=== PATIENT | male | born 1975 | race Caucasian/White ===

== ENCOUNTER → 2020-02-15 12:08 | Outpatient (BNVA) | payer MEDICAID, SELFPAY | PROVIDERS: Visit Provider Family Medicine Adult Medicine | DX: R06.02 Shortness of breath (principal); J44.1 Chronic obstructive pulmonary disease with (acute) exacerbation; F17.210 Nicotine dependence, cigarettes, uncomplicated; Z00.00 Encounter for general adult medical examination without abnormal findings | CPT/HCPCS: 80053; 80061; 83036; 84443; 85025 ==

== ENCOUNTER → 2021-02-27 11:54 | Outpatient (BNVA) | payer MEDICAID, SELFPAY | PROVIDERS: PCP Family Medicine Adult Medicine; Visit Provider Family Medicine Adult Medicine | DX: J44.9 Chronic obstructive pulmonary disease, unspecified (principal); Z13.6 Encounter for screening for cardiovascular disorders | CPT/HCPCS: 80053; 80061; 83036; 84443; 85025; G0103 ==

== ENCOUNTER 2021-09-24 01:08 | Emergency (ER) | payer MEDICAID, SELFPAY ==
[2021-09-24] VITALS (9 sets, daily range): BP systolic 124–155; BP diastolic 84–98; PULSE 102–140; RESP 18–34; TEMP 36.9; O2SAT 80–96; BMI 24.3
--- NOTE | 2021-09-24 01:12 | XRR_ITS ---
PROCEDURE INFORMATION: Exam: XR Chest Exam date and time: 09/24/2021 1:28 AM Age: 46 years old Clinical indication: Shortness of breath; Patient HX: C/O SOB. History of copd. TECHNIQUE: Imaging protocol: Radiologic exam of the chest. Views: 1 view. COMPARISON: CR Chest 1 [place] [id number] 10/16/2018 12:48 AM FINDINGS: Lungs: The lungs are somewhat hyperinflated with increased interstitial markings, likely representing COPD. No evidence of focal consolidation to suggest pneumonia. Pleural spaces: Unremarkable. No pleural effusion. No pneumothorax. Heart/Mediastinum: Stable cardiomediastinal silhouette. Bones/joints: Unremarkable. XR/XR chest 1V portable [id number] IMPRESSION: No evidence of focal consolidation. COPD changes.
--- NOTE | 2021-09-24 01:12 | ECG_ITS ---
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 Measurements Intervals [place] Rate: 134 P: 80 OK: 123 QRS: 97 QRSD: 86 T: 78 QT: 270 QTc: 403 Interpretive Statements SINUS TACHYCARDIA BORDERLINE RIGHT AXIS DEVIATION [QRS AXIS > 90] ABNORMAL RHYTHM ECG Compared to ECG 10/09/2018 14:36:26 Sinus rhythm no longer present Electronically Signed On 09-24-2021 16:29:17 CDT by Lukas Rodrigez M.D. [id number] f
--- NOTE | 2021-09-24 01:13 | W.ED.SOB ---
HPI - SOB/Dyspnea General: Chief Complaint: Shortness of Breath/Dyspnea Stated Complaint: SOB Time Seen by Provider: 09/24/21 01:10 Source: patient Mode of arrival: ambulatory Limitations: no limitations History of Present Illness: HPI Narrative: 46-year-old male has a history of COPD states he had increasing shortness of breath of the last 2 days. Patient is tachypneic here and able to speak in 2-3 word sentences patient's pulse ox on room air here is 80% had to place him on 4 L. He denies any cough or fever denies any worsening improving factors he is tried breathing treatments at home with minimal improvement. He denies any chest pain. Associated symptoms: Deny abdominal pain, chest pain, fever(s), nausea or vomiting Review of Systems Const: Denies: fever(s), chills, body aches or change in appetite Eyes: Denies: blurry vision or eye discomfort ENMT: Denies: throat pain or dental pain Card: Denies: chest pain Resp: Reports: dyspnea GI: Denies: abdominal pain, nausea, vomiting or diarrhea : Denies: dysuria Musc: Denies: neck pain or back pain Skin/Breast: Denies: rash Neuro: Denies: headache(s) Psych: Denies: depression Rik/Lymph: Denies: easy bruising All/Imm: Denies: urticaria PFSH ED PFSH: Medical History Anxiety disorder due to general medical condition with panic attack Cigarette smoker two packs a day or less COPD (chronic obstructive pulmonary disease) case management patient COPD exacerbation COPD with hypoxia Encounter for smoking cessation counseling Lipoma of chest wall 03/06/2021 3.5 x 6 cm right lateral chest wall probable lipoma Oxygen dependent Shortness of breath at rest Family History Other COPD (chronic obstructive pulmonary disease) Cancer Social History Smoking and tobacco status: heavy tobacco smoker (o.5 pack a day) cigarettes Packs smoked per day: 1 Second hand smoke exposure: Yes Alcohol intake: current Alcohol intake frequency: holidays/special occasions only Marital status: Legally Current occupational status: disabled Physical Exam Const: COMMON NORMALS: patient oriented x3 GENERAL APPEARANCE: in distress and ill appearing HENMT: COMMON NORMALS: normocephalic and atraumatic HEAD & SCALP: normocephalic and atraumatic Eye: COMMON NORMALS: Equal, round and reactive pupils present and EOMs intact bilaterally PUPIL: Yes Equal, round and reactive pupils present Neck/C-Spine: COMMON NORMALS: full ROM and supple Chest: COMMONS NORMALS: normal inspection of the chest and normal palpation of entire chest wall Resp: EFFORT & INSPECTION: Yes tachypneic AUSCULTATION: wheezes and diminished lung sounds Cardio: COMMON NORMALS: regular rhythm and No murmurs present (Cardio) RATE: tachycardic RHYTHM: regular rhythm GI: COMMON NORMALS: Normal to inspection, nondistended, normoactive bowel sounds present, Soft to palpation, non-tender and no masses PALPATION: Yes Soft to palpation Extremity: COMMON NORMALS: normal to inspection and full ROM Neuro: COMMON NORMALS: patient oriented x3, moves all extremities and no focal motor deficits Psych: COMMON NORMALS: mental status grossly normal, Normal thought process present and cooperative THOUGHT PROCESS: Normal thought process present Skin: COMMON NORMALS: no rashes or lesions noted and no wounds GENERAL SKIN EXAM: no rashes or lesions noted Course Vital Signs: Vital signs: Vital Signs Temperature 98.4 F 09/24/21 01:16 Pulse Rate 102 H 09/24/21 05:22 Respiratory Rate 22 H 09/24/21 05:22 Blood Pressure 124/84 09/24/21 05:22 Pulse Oximetry 95 09/24/21 05:22 Oxygen Delivery Ne thod 09/24/21 05:21 Oxygen Flow Rate 4 09/24/21 05:21 MDM - SOB/Dyspnea Medical Decision Making Patient presents here with shortness of breath likely from his COPD he is supposed to be on 3 to 4 L of oxygen at home but has not had it delivered. Patient here after breathing treatment feels much improved and he is satting 95% on 4 L. I did offer him admission but he states he would rather go home we will set him up with home oxygen he is to follow-up with PCP and return if worsening will prescribe him steroids. Lab Data : 09/24/21 01:21 09/24/21 01:21 Labs/Radiology: Radiology Impressions Chest X-Ray 09/24/21 01:12 IMPRESSION: No evidence of focal consolidation. COPD changes. Laboratory Results WBC 15.4 10^3/uL (4.0-10.0) H 09/24/21 01:21 RBC 5.57 10^6/uL (4.1-5.3) H 09/24/21 01:21 Hgb 15.9 g/dL (11.7-16.6) 09/24/21 01:21 Hct 49.9 % (42.0-52.0) 09/24/21 01:21 MCV 89.6 fl (80-94) 09/24/21 01:21 MCH 28.5 pg (28.0-34.0) 09/24/21 01:21 MCHC 31.9 g/dL (30.0-36.0) 09/24/21 01:21 RDW 14.1 % (12.1-15.1) 09/24/21 01:21 Plt Count 298 10^3/cmm (130-400) 09/24/21 01:21 MPV 9.5 fL (7.4-10.4) 09/24/21 01:21 Neut % (Auto) 77.7 % 09/24/21 01:21 Lymph % (Auto) 11.0 % 09/24/21 01:21 [place] % (Auto) 8.9 % 09/24/21 01:21 Eos % (Auto) 1.5 % 09/24/21 01:21 Baso % (Auto) 0.5 % 09/24/21 01:21 Neut # (Auto) 11.94 10^3/uL (1.8-7.7) H 09/24/21 01:21 Lymph # (Auto) 1.7 10^3/uL (0.8-4.8) 09/24/21 01:21 [place] # (Auto) 1.4 10^3/uL (0.2-0.9) H 09/24/21 01:21 Eos # (Auto) 0.2 10^3/uL (0.0-0.8) 09/24/21 01:21 Baso # (Auto) 0.1 10^3/uL (0.0-0.1) 09/24/21 01:21 Nucleated RBC % (auto) 0 % 09/24/21 01:21 Nucleated RBCs # 0.0 /100WBC 09/24/21 01:21 Specimen Type Arterial 09/24/21 01:24 Sample Site Radial, right 09/24/21 01:24 ABG pH 7.38 (7.35-7.45) 09/24/21 01:24 ABG pCO2 54.1 mmHg (35-45) H 09/24/21 01:24 ABG pO2 75.6 mmHg (80.0-100.0) L 09/24/21 01:24 ABG HCO3 31.6 mmol/L (22-26) H 09/24/21 01:24 ABG Base Excess 4.8 mmol/L (-2.0-2.0) H 09/24/21 01:24 Gurpreet Test Pos 09/24/21 01:24 Hematocrit 46.8 % (42-52) 09/24/21 01:24 Hgb O2 Saturation 92.4 % (95-100) L 09/24/21 01:24 Carboxyhemoglobin 2.3 %THgb (0.4-20.1) 09/24/21 01:24 Methemoglobin 0.7 % (0.4-1.5) 09/24/21 01:24 Total Hemoglobin 15.3 g/dL (14-18) 09/24/21 01:24 O2 Delivery Device Nc 09/24/21 01:24 O2 Liters/Min 4.0 % 09/24/21 01:24 Nuclear Auxiliary Operator ID Walci 09/24/21 01:24 Sodium 137 mmol/L (136-145) 09/24/21 01:21 Potassium 4.6 mmol/L (3.5-5.1) 09/24/21 01:21 Chloride 100 mmol/L (98-107) 09/24/21 01:21 Carbon Dioxide 26 mmol/L (22-29) 09/24/21 01:21 Anion Gap 15.6 (5-19) 09/24/21 01:21 BUN 17 mg/dL (6-20) 09/24/21 01:21 Creatinine 0.8 mg/dL (0.7-1.2) 09/24/21 01:21 GFR Calculation 103.2 mL/min (90-130) 09/24/21 01:21 Glucose 87 mg/dL (65-115) 09/24/21 01:21 Calculated Osmolality 285 mOsm/kg (285-295) 09/24/21 01:21 Calcium 9.9 mg/dL (8.5-10.5) 09/24/21 01:21 Total Bilirubin 0.4 mg/dL (0.15-1.2) 09/24/21 01:21 AST 46 U/L (0-40) H 09/24/21 01:21 ALT 65 U/L (0-41) H 09/24/21 01:21 Alkaline Phosphatase 86 IU/L (40-130) 09/24/21 01:21 NT-Pro-B Natriuret Pep 568 pg/mL (0-125) H 09/24/21 01:21 Total Protein 7.7 g/dL (6.6-8.7) 09/24/21 01:21 Albumin 3.9 g/dL (3.5-5.2) 09/24/21 01:21 Globulin 3.8 g/dL (1.3-4.6) 09/24/21 01:21 SARS-CoV-2 Ag (Rapid) Negative (Negative) 09/24/21 01:23 EKG Data EKG 1: I personally reviewed and interpreted this EKG as follows: EKG Interpretation Date: 09/24/21 EKG interpretation time: 01:16 Interpretation: sinus tach hr [address] or t wave abnormalities qrs 86 qtc 349 Discharge Plan Discharge Patient Disposition: Home Clinical Impression: Acute exacerbation of chronic obstructive airways disease Condition: Stable Prescriptions: New prednisone 50 mg tablet 50 mg PO DAILY Qty: 5 0RF No Action budesonide-formoterol [Symbicort] 160-4.5 mcg/actuation HFA aerosol inhaler 2 puff inhalation BID Qty: 10.2 5RF methadone IM montelukast [Singulair] 10 mg tablet 10 mg PO DAILY Qty: 30 5RF hydroxyzine pamoate 50 mg capsule 50 mg PO Q8H PRN (Reason: Anxiety or panic attacks) Qty: 90 5RF sertraline 50 mg tablet 50 mg PO DAILY Qty: 30 1RF Spiriva with HandiHaler 18 mcg capsule, w/inhalation device 1 cap inhalation DAILY Qty: 30 5RF Rx Instructions: puncture 1 cap using device; one dose = 2 inhalations 340B meds (DME) Oxygen and supplies See Rx Instructions .Route .MEDSUPPLY Qty: 1 0RF Rx Instructions: As directed, 2 liters, continuous. Combivent Respimat 20-100 mcg/actuation mist See Rx Instructions .ROUTE .COMPLEX Qty: 4 3RF Dose Instruction: INHALE 2 PUFFS BY MOUTH EVERY 8 HOURS NEEDED FOR SHORTNESS OF BREATH OR WHEEZING Rx Instructions: INHALE 2 PUFFS BY MOUTH EVERY 8 HOURS NEEDED FOR SHORTNESS OF BREATH OR WHEEZING Discharge Orders: Discharge ED (Routine); Ordered 09/24/21 Ordered By: Randy Saldana Other Ambulatory Orders: DME: Oxygen (Order) Location: None Selected Ordered By: Randy Saldana Referrals: Bruno Lucas MD [Primary Care Provider] - 1-3 days Discharge Diet: Advance as tolerated Discharge Activity: Resume usual activity Patient Instructions: COPD (Chronic Obstructive Pulmonary Disease) (ED) Coding Level of Care Code ED Grading Clerk for Chg Fwd Exam Comprehensive
[2021-09-24 01:27] LABS: Basophils # 0.1 10^3/uL (0.0-0.1); Basophils % 0.5 %; Eosinophils # 0.2 10^3/uL (0.0-0.8); Eosinophils % 1.5 %; Hematocrit 49.9 % (42.0-52.0); Hemoglobin 15.9 g/dL (11.7-16.6); Lymphocytes # 1.7 10^3/uL (0.8-4.8); Mean Corpuscular HGB Conc 31.9 g/dL (30.0-36.0); Mean Corpuscular Hemoglobin 28.5 pg (28.0-34.0); Mean Corpuscular Volume 89.6 fl (80-94); Mean Platelet Volume 9.5 fL (7.4-10.4); Monocytes # 1.4 10^3/uL (0.2-0.9); Monocytes % 8.9 %; Neutrophils # 11.94 10^3/uL (1.8-7.7); Neutrophils % 77.7 %; Nucleated Red Blood Cells % 0 %; Platelet Count 298 10^3/cmm (130-400); Red Blood Count 5.57 10^6/uL (4.1-5.3); Red Cell Distribution Width 14.1 % (12.1-15.1); White Blood Count 15.4 10^3/uL (4.0-10.0)
[2021-09-24 01:35] LABS: ABG PCO2 54.1 mmHg (35-45); ABG PH Result 7.38 (7.35-7.45); Arterial Blood Gas Hematocrit 46.8 % (42-52); Base Excess ABG 4.8 mmol/L (-2.0-2.0); Blood Gas Allen Test Pos; Blood Gas Operator Identificat WALCI; Blood Gas Sample Site Radial, right; Blood Gas Sample Type Arterial; Carboxyhemoglobin 2.3 %THgb (0.4-20.1); HCO3 ABG 31.6 mmol/L (22-26); HGB O2 Sat 92.4 % (95-100); Methemoglobin 0.7 % (0.4-1.5); Oxygen Device NC; PO2 ABG 75.6 mmHg (80.0-100.0); Total Hemoglobin 15.3 g/dL (14-18)
[2021-09-24] MEDS: ipratropium-albuterol 3 mL Neb INHALATION (01:37)
[2021-09-24] MEDS: levalbuterol 1.25 mg/3 mL Neb INHALATION ×2 (01:37→02:49)
[2021-09-24 01:56] LABS: SARS Covid-2 Antigen Negative (Negative)
[2021-09-24 01:59] LABS: Alanine Aminotransferase 65 U/L (0-41); Albumin Level 3.9 g/dL (3.5-5.2); Alkaline Phosphatase 86 IU/L (40-130); Anion Gap 15.6 (5-19); Aspartate Amino Transferase 46 U/L (0-40); Blood Urea Nitrogen 17 mg/dL (6-20); Calcium 9.9 mg/dL (8.5-10.5); Carbon Dioxide 26 mmol/L (22-29); Chloride 100 mmol/L (98-107); Globulin 3.8 g/dL (1.3-4.6); Glomerular Filtration Rate 103.2 mL/min (90-130); Glucose 87 mg/dL (65-115); Osmolality Calculated 285 mOsm/kg (285-295); Potassium 4.6 mmol/L (3.5-5.1); Sodium 137 mmol/L (136-145); Total Bilirubin 0.4 mg/dL (0.15-1.2); Total Protein 7.7 g/dL (6.6-8.7)
[2021-09-24 02:06] LABS: NT Pro B Type Natriuretic Pept 568 pg/mL (0-125)
== END 2021-09-24 05:23 | disposition home or self-care (01) ==
PROVIDERS: Emergency Provider Emergency Medicine; PCP Family Medicine Adult Medicine
DX: J44.1 Chronic obstructive pulmonary disease with (acute) exacerbation (principal); Z20.822 Contact with and (suspected) exposure to COVID-19; Z99.81 Dependence on supplemental oxygen; F17.210 Nicotine dependence, cigarettes, uncomplicated
CPT/HCPCS: 36600; 71045; 80053; 82805; 83880; 85025; 87426; 93005; 94640; 96374; 99285; J2930; J7614

== ENCOUNTER 2022-02-26 12:16 | Emergency (ER) | payer MEDICAID, SELFPAY ==
[2022-02-26 12:54] VITALS: BP 136/81; PULSE 136; RESP 27; TEMP 37.8
--- NOTE | 2022-02-26 13:21 | XR_ITS ---
WS: [id number] Portable PA upright chest, 02/26/2022 Clinical Data: SOB Comparison: Portable chest, 09/24/2021 Findings: No nodules, masses or effusions are seen. The heart is normal. The diaphragms are flattened . No pneumonia or pneumothorax is seen. The medial aspect of the left upper lobe has herniated acros s the midline. The pulmonary vascularity is normal. XR/XR chest 1V portable [id number] Impression: Hyperinflation.
[2022-02-26 13:44] VITALS: BP 136/86; PULSE 128; RESP 28; O2SAT 92
[2022-02-26 14:17] LABS: ABG PCO2 53.2 mmHg (35-45); ABG PH Result 7.38 (7.35-7.45); Alveolar-Arterial Oxygen Gradi 0.3 mmHg (5-10); Arterial Blood Gas Hematocrit 49.6 % (42-52); Base Excess ABG 4.3 mmol/L (-2.0-2.0); Blood Gas Allen Test Pos; Blood Gas Operator Identificat WALCI; Blood Gas Sample Site Radial, right; Blood Gas Sample Type Arterial; Carboxyhemoglobin 1.8 %THgb (0.4-20.1); HCO3 ABG 31.2 mmol/L (22-26); HGB O2 Sat 94.5 % (95-100); Ionized Calcium Level - ABG 1.2 mmol/L (1.1-1.4); Methemoglobin 0.1 % (0.4-1.5); Oxygen Device NC; Oxygen Saturation ABG 96.4; PO2 ABG 81.6 mmHg (80.0-100.0); Potassium Level - ABG 4.3 mmol/L (3.5-5.0); Total Hemoglobin 16.2 g/dL (14-18)
--- NOTE | 2022-02-26 14:56 | PC.NURSE ---
WHILE AT BEDSIDE PT REQUESTING MEDICATION FOR HIS HEAD INFORMED HIM I WOULD NOTIFY DR. ORTA.DR. ORTA IS NOT IN HIS OFFICE LEFT NOTE.
[2022-02-26 15:18] LABS: Basophils # 0.1 10^3/uL (0.0-0.1); Basophils % 0.3 %; Eosinophils % 0.1 %; Hemoglobin 15.5 g/dL (11.7-16.6); Lymphocytes # 0.8 10^3/uL (0.8-4.8); Lymphocytes % 5.1 %; Mean Corpuscular Hemoglobin 28.1 pg (28.0-34.0); Mean Corpuscular Volume 85.3 fl (80-94); Mean Platelet Volume 9.8 fL (7.4-10.4); Monocytes # 1.3 10^3/uL (0.2-0.9); Monocytes % 8.3 %; Neutrophils # 13.67 10^3/uL (1.8-7.7); Neutrophils % 85.7 %; Nucleated Red Blood Cells % 0 %; Platelet Count 255 10^3/cmm (130-400); Red Blood Count 5.51 10^6/uL (4.1-5.3); Red Cell Distribution Width 14.1 % (12.1-15.1)
--- NOTE | 2022-02-26 15:35 | W.ED.SOB ---
HPI - SOB/Dyspnea General: Chief Complaint: Shortness of Breath/Dyspnea Stated Complaint: SOB Time Seen by Provider: 02/26/22 14:17 Source: patient Mode of arrival: ambulatory History of Present Illness: HPI Narrative: 46-year-old male presents emergency room with complaints of shortness of breath wheezing and productive cough started last night. He has a history of COPD and is chronically on 2 L by nasal cannula he tested negative for COVID at home yesterday on a rapid test. Patient has had a fever at home severe headaches muscle aches. No vomiting or diarrhea. MD elicited complaint: shortness of breath and cough Pertinent past history: COPD Onset (ago): day(s) Timing: constant Severity: mild Exacerbating factors: coughing Relieving factors: oxygen, rest and bronchodilators Known history of: COPD Associated symptoms: Reports chest congestion, cough, fever(s) and nausea; Deny abdominal pain, chest pain, diaphoresis, dizziness, extremity pain, hemoptysis, lightheadedness, myalgias, orthopnea, palpitations, paresthesias, polydipsia, polyuria, rash, sense of impending doom, syncope or vomiting Treatment prior to arrival: oxygen and bronchodilator Review of Systems Const: Reports: fever(s), chills, fatigue and malaise; Denies: diaphoresis ENMT: Denies: throat pain, ear or mastoid pain, nasal discharge or nasal congestion Card: Denies: chest pain, palpitations, irregular heart rhythm, edema, lightheadedness, syncope or orthopnea Resp: Reports: dyspnea, non-productive cough, wheezing and chest congestion; Denies: hemoptysis GI: Reports: nausea; Denies: abdominal pain or vomiting : Denies: flank pain, dysuria, urinary frequency or urinary urgency Musc: Reports: joint pain; Denies: extremity pain Skin/Breast: Denies: rash or pruritus Neuro: Reports: headache(s); Denies: dizziness Endo: Denies: polyuria or polydipsia PFS ED PFSH: Medical History (Updated 02/26/22 @ 17:36 by Migue Menjivar DO) Anxiety disorder due to general medical condition with panic attack Cigarette smoker motivated to quit Cigarette smoker two packs a day or less COPD (chronic obstructive pulmonary disease) case management patient COPD exacerbation COPD with hypoxia Decompensated COPD with exacerbation (chronic obstructive pulmonary disease) Encounter for smoking cessation counseling Lipoma of chest wall 03/06/2021 3.5 x 6 cm right lateral chest wall probable lipoma Oxygen dependent Respiratory distress, acute Shortness of breath at rest Family History Other COPD (chronic obstructive pulmonary disease) Cancer Social History (Updated 01/02/22 @ 13:38 by Nimco [place] LPN) Smoking and tobacco status: current every day smoker cigarettes Packs smoked per day: 1 Second hand smoke exposure: Yes Alcohol intake: current Alcohol intake frequency: holidays/special occasions only Alcohol type: hard liquor Lives independently: Yes Marital status: Legally Current occupational status: disabled Current gender identity: Male Physical Exam Const: COMMON NORMALS: no acute distress GENERAL APPEARANCE: cooperative and comfortable ORIENTATION/CONSCIOUSNESS: Yes awake, Yes oriented to person, Yes oriented to place and Yes oriented to time HENMT: COMMON NORMALS: normocephalic, atraumatic, hearing grossly normal bilaterally, external ears normal, EAC's normal, TM's normal bilaterally, Normal nasal mucous membranes and turbinates present, moist oral mucous membranes and oropharynx normal HEAD & SCALP: normocephalic and atraumatic NOSE: Normal nasal mucous membranes and turbinates present EXTERNAL EAR: Yes external ears normal EXTERNAL AUDITORY CANAL: EAC's normal TYMPANIC MEMBRANE: TM's normal bilaterally Eye: COMMON NORMALS: Equal, round and reactive pupils present, EOMs intact bilaterally, conjunctivae normal and no scleral icterus CONJUNCTIVA: Yes conjunctivae normal PUPIL: Yes Equal, round and reactive pupils present Neck/C-Spine: COMMON NORMALS: full ROM, no lymphadenopathy and supple Resp: AUSCULTATION: rhonchi and wheezes Cardio: COMMON NORMALS: regular rate, regular rhythm and No murmurs present (Cardio) RATE: regular rate RHYTHM: regular rhythm GI: COMMON NORMALS: Soft to palpation and No hepatosplenomegaly present AUSCULTATION: Yes normoactive bowel sounds PALPATION: Yes Soft to palpation, No Tenderness to palpation present (GI), No Guarding due to palpation present (GI) and Yes No hepatosplenomegaly present Extremity: COMMON NORMALS: normal to inspection, capillary refill normal, no clubbing, cyanosis or edema, no calf tenderness and no pedal edema Neuro: SENSORIUM/ORIENTATION: Yes oriented to person, Yes oriented to place and Yes oriented to time Skin: COMMON NORMALS: no rashes or lesions noted GENERAL SKIN EXAM: no rashes or lesions noted Course Vital Signs: Vital signs: Vital Signs Temperature 98.4 F 02/26/22 18:25 Pulse Rate 119 H 02/26/22 18:25 Respiratory Rate 18 02/26/22 18:25 Blood Pressure 135/74 02/26/22 18:25 Pulse Oximetry 96 02/26/22 18:25 Oxygen Delivery Me thod 02/26/22 16:16 Oxygen Flow Rate 2 02/26/22 16:16 Fraction of Inspir ed Oxygen 90 02/26/22 12:54 MDM - SOB/Dyspnea Medical Decision Making Labs imaging reviewed. Nothing acute on his chest x-ray test positive for flu. He is feeling better after treatment we will put him on steroid taper also on Tamiflu because of his severe COPD encouraged him to use the albuterol every 2-4 hours while awake return if is worsening problems Medical Records I reviewed the patient's medical records. Lab Data I reviewed the patient's lab results. 02/26/22 15:10 02/26/22 15:10 Labs/Radiology: Radiology Impressions Chest X-Ray 02/26/22 13:21 Impression: Hyperinflation. Laboratory Results WBC 16.0 10^3/uL (4.0-10.0) H 02/26/22 15:10 RBC 5.51 10^6/uL (4.1-5.3) H 02/26/22 15:10 Hgb 15.5 g/dL (11.7-16.6) 02/26/22 15:10 Hct 47.0 % (42.0-52.0) 02/26/22 15:10 MCV 85.3 fl (80-94) 02/26/22 15:10 MCH 28.1 pg (28.0-34.0) 02/26/22 15:10 MCHC 33.0 g/dL (30.0-36.0) 02/26/22 15:10 RDW 14.1 % (12.1-15.1) 02/26/22 15:10 Plt Count 255 10^3/cmm (130-400) 02/26/22 15:10 MPV 9.8 fL (7.4-10.4) 02/26/22 15:10 Neut % (Auto) 85.7 % 02/26/22 15:10 Lymph % (Auto) 5.1 % 02/26/22 15:10 [place] % (Auto) 8.3 % 02/26/22 15:10 Eos % (Auto) 0.1 % 02/26/22 15:10 Baso % (Auto) 0.3 % 02/26/22 15:10 Neut # (Auto) 13.67 10^3/uL (1.8-7.7) H 02/26/22 15:10 Lymph # (Auto) 0.8 10^3/uL (0.8-4.8) 02/26/22 15:10 [place] # (Auto) 1.3 10^3/uL (0.2-0.9) H 02/26/22 15:10 Eos # (Auto) 0.0 10^3/uL (0.0-0.8) 02/26/22 15:10 Baso # (Auto) 0.1 10^3/uL (0.0-0.1) 02/26/22 15:10 Nucleated RBC % (auto) 0 % 02/26/22 15:10 Nucleated RBCs # 0.0 /100WBC 02/26/22 15:10 Specimen Type Arterial 02/26/22 14:06 Sample Site Radial, right 02/26/22 14:06 ABG pH 7.38 (7.35-7.45) 02/26/22 14:06 ABG pCO2 53.2 mmHg (35-45) H 02/26/22 14:06 ABG pO2 81.6 mmHg (80.0-100.0) 02/26/22 14:06 ABG HCO3 31.2 mmol/L (22-26) H 02/26/22 14:06 ABG O2 Saturation 96.4 02/26/22 14:06 ABG Base Excess 4.3 mmol/L (-2.0-2.0) H 02/26/22 14:06 Gurpreet Test Pos 02/26/22 14:06 A-a O2 Gradient 0.3 mmHg (5-10) L 02/26/22 14:06 Hematocrit 49.6 % (42-52) 02/26/22 14:06 Hgb O2 Saturation 94.5 % (95-100) L 02/26/22 14:06 Carboxyhemoglobin 1.8 %THgb (0.4-20.1) 02/26/22 14:06 Methemoglobin 0.1 % (0.4-1.5) L 02/26/22 14:06 Total Hemoglobin 16.2 g/dL (14-18) 02/26/22 14:06 Sodium 128.0 mmol/L (131-143) L 02/26/22 14:06 Potassium 4.3 mmol/L (3.5-5.0) 02/26/22 14:06 Glucose 86.0 mg/dL (70-115) 02/26/22 14:06 Ionized Calcium 1.2 mmol/L (1.1-1.4) 02/26/22 14:06 O2 Delivery Device Nc 02/26/22 14:06 O2 Liters/Min 3.0 % 02/26/22 14:06 Psychologist Counseling ID Walci 02/26/22 14:06 Sodium 126 mmol/L (136-145) L 02/26/22 15:10 Potassium 4.5 mmol/L (3.5-5.1) 02/26/22 15:10 Chloride 89 mmol/L (98-107) L 02/26/22 15:10 Carbon Dioxide 30 mmol/L (22-29) H 02/26/22 15:10 Anion Gap 11.5 (5-19) 02/26/22 15:10 BUN 14 mg/dL (6-20) 02/26/22 15:10 Creatinine 0.6 mg/dL (0.7-1.2) L 02/26/22 15:10 GFR Calculation 143.8 mL/min (90-130) H 02/26/22 15:10 Glucose 87 mg/dL (65-115) 02/26/22 15:10 Calculated Osmolality 262 mOsm/kg (285-295) L 02/26/22 15:10 Lactic Acid 0.5 mmol/L (0.5-2.2) 02/26/22 15:10 Calcium 9.8 mg/dL (8.5-10.5) 02/26/22 15:10 Total Bilirubin 0.6 mg/dL (0.15-1.2) 02/26/22 15:10 AST 47 U/L (0-40) H 02/26/22 15:10 ALT 57 U/L (0-41) H 02/26/22 15:10 Alkaline Phosphatase 75 U/L (40-130) 02/26/22 15:10 Total Protein 7.5 g/dL (6.6-8.7) 02/26/22 15:10 Albumin 4.2 g/dL (3.5-5.2) 02/26/22 15:10 Globulin 3.3 g/dL (1.3-4.6) 02/26/22 15:10 Influenza Type A Ag positive (Negative) H 02/26/22 16:36 Influenza Type B Ag negative (Negative) 02/26/22 16:36 Discharge Plan Discharge Patient Disposition: Home Clinical Impression: Acute exacerbation of chronic obstructive airways disease, Influenza A Condition: Stable Prescriptions: New Tamiflu 75 mg capsule 75 mg PO BID 5 Days Qty: 10 0RF prednisone 20 mg tablet 20 mg PO TID Qty: 15 0RF Rx Instructions: 1 p.o. 3 times daily x3 days, 1 p.o. twice daily x2 days, 1 p.o. daily x2 days albuterol sulfate 90 mcg/actuation HFA aerosol inhaler 2 inh INHALATION Q4H PRN (Reason: shortness of breath or wheezing) Qty: 18 0RF No Action bupropion HCl 150 mg tablet sustained-release 12 hr 150 mg PO QAM Qty: 30 3RF (DME) Oxygen and supplies See Rx Instructions .Route .MEDSUPPLY Qty: 1 11RF Rx Instructions: As directed, 2 liters, continuous. Spiriva with HandiHaler 18 mcg capsule, w/inhalation device 1 cap inhalation DAILY Qty: 30 5RF Rx Instructions: puncture 1 cap using device; one dose = 2 inhalations 340B meds (DME) nebulizer & suppies See Rx Instructions .Route .MEDSUPPLY Qty: 1 0RF Rx Instructions: As directed Home equipment hydroxyzine pamoate 50 mg capsule 50 mg PO Q8H PRN (Reason: Anxiety) sertraline 50 mg tablet 50 mg PO DAILY Singulair 10 mg tablet 10 mg PO DAILY Symbicort 160-4.5 mcg/actuation HFA aerosol inhaler 2 puff inhalation BID ipratropium-albuterol 20-100 mcg/actuation mist 2 puff inhalation Q8H PRN (Reason: Shortness Of Breath) Discharge Orders: Discharge ED (Routine); Ordered 02/26/22 Ordered By: Migue Menjivar Referrals: Bruno Lucas MD [Primary Care Provider] - Discharge Diet: Usual diet Discharge Activity: Resume usual activity Patient Instructions: Opioid Safety, Pain Management Activity Restrictions/Additional Instructions: You were seen today for shortness of breath. You tested positive for influenza A. Due to your COPD we are starting you on a course of prednisone also recommend you do Tamiflu. Use albuterol as needed. Coding Level of Care Code ED Title I Assistant for Eb Chawla
[2022-02-26 15:37] LABS: Lactic Sepsis W/Reflex 0.5 mmol/L (0.5-2.2)
[2022-02-26 15:44] LABS: Alanine Aminotransferase 57 U/L (0-41); Albumin Level 4.2 g/dL (3.5-5.2); Alkaline Phosphatase 75 U/L (40-130); Anion Gap 11.5 (5-19); Aspartate Amino Transferase 47 U/L (0-40); Blood Urea Nitrogen 14 mg/dL (6-20); Calcium 9.8 mg/dL (8.5-10.5); Carbon Dioxide 30 mmol/L (22-29); Chloride 89 mmol/L (98-107); Globulin 3.3 g/dL (1.3-4.6); Glomerular Filtration Rate 143.8 mL/min (90-130); Glucose 87 mg/dL (65-115); Osmolality Calculated 262 mOsm/kg (285-295); Potassium 4.5 mmol/L (3.5-5.1); Sodium 126 mmol/L (136-145); Total Bilirubin 0.6 mg/dL (0.15-1.2); Total Protein 7.5 g/dL (6.6-8.7)
[2022-02-26] MEDS: ipratropium-albuterol 3 mL Neb INHALATION (16:15)
[2022-02-26 16:16] VITALS: PULSE 120; RESP 20; O2SAT 99
[2022-02-26 16:19] VITALS: PULSE 121
[2022-02-26] MEDS: ketorolac 30 mg/mL INJ IVP (16:41)
[2022-02-26 17:15] LABS: Influenza A by IFA positive (Negative); Influenza B by IFA negative (Negative)
[2022-02-26 18:25] VITALS: BP 135/74; PULSE 119; RESP 18; TEMP 36.9; O2SAT 96
== END 2022-02-26 18:26 | disposition home or self-care (01) ==
PROVIDERS: Emergency Provider Family Medicine; PCP Family Medicine Adult Medicine
DX: J44.1 Chronic obstructive pulmonary disease with (acute) exacerbation (principal); J10.1 Influenza due to other identified influenza virus with other respiratory manifestations; Z99.81 Dependence on supplemental oxygen; F17.210 Nicotine dependence, cigarettes, uncomplicated
CPT/HCPCS: 36415; 36600; 71045; 80051; 80053; 82330; 82805; 83605; 85025; 87804; 94640; 96374; 96375; 99284; J1885; J2930

== ENCOUNTER 2022-05-27 20:30 | Emergency (ER) | payer MEDICAID, SELFPAY ==
[2022-05-27 20:37] VITALS: BP 157/94; PULSE 101; RESP 24; TEMP 36.3; O2SAT 92; BMI 23.6
--- NOTE | 2022-05-27 21:22 | CTR_ITS ---
PROCEDURE INFORMATION: Exam: CTA Head With Contrast, Arteriography Exam date and time: 05/27/2022 9:48 PM Age: 46 years old Clinical indication: Pain; Headache; Patient HX: HX of chest wall lipoma; Additional info: ROBLES TECHNIQUE: Imaging protocol: Computed tomographic angiography of the head with contrast. Exam focused on the arteries. 3D rendering (Not supervised by radiologist): MIP and/or 3D reconstructed images were created by the technologist. Radiation optimization: All CT scans at this facility use at least one of these dose optimization techniques: automated exposure control; mA and/or kV adjustment per patient size (includes targeted exams where dose is matched to clinical indication); or iterative reconstruction. Contrast material: OMNI 350; Contrast volume: 100 ml; Contrast route: INTRAVENOUS (IV); REPORTING DATA: Count of CT and Cardiac NM exams in prior 12 months: This patient has received [address] and 0 known cardiac nuclear medicine studies in the 12 months prior to the current study. COMPARISON: CT head wo con* [id number] 05/27/2022 9:44 PM RADIATION DOSE METRICS: Total DLP (mGy-cm): 487.51 FINDINGS: ANTERIOR CIRCULATION: Right internal carotid artery: Intracranial segment is patent with no significant stenosis. No aneurysm. Right middle cerebral artery: No occlusion or significant stenosis. No aneurysm. Right anterior cerebral artery: No occlusion or significant stenosis. No aneurysm. Left internal carotid artery: Intracranial segment is patent with no significant stenosis. No aneurysm. Left middle cerebral artery: No occlusion or significant stenosis. No aneurysm. Left anterior cerebral artery: No occlusion or significant stenosis. No aneurysm. POSTERIOR CIRCULATION: Right vertebral artery: No occlusion or significant stenosis. No aneurysm. Left vertebral artery: No occlusion or significant stenosis. No aneurysm. Basilar artery: No occlusion or significant stenosis. No aneurysm. Right posterior cerebral artery: No occlusion or significant stenosis. No aneurysm. Left posterior cerebral artery: No occlusion or significant stenosis. No aneurysm. Brain: No definite mass, mass effect, or midline shift. Cerebral ventricles: No ventriculomegaly. Bones/joints: Unremarkable. No acute fracture. Soft tissues: Unremarkable. PROCEDURE INFORMATION: Exam: CTA Neck With Contrast Exam date and time: 05/27/2022 9:48 PM Age: 46 years old Clinical indication: Pain; Headache; Patient HX: HX of chest wall lipoma; Additional info: ROBLES TECHNIQUE: Imaging protocol: Computed tomographic angiography of the neck with contrast. 3D rendering (Not supervised by radiologist): MIP and/or 3D reconstructed images were created by the technologist. Radiation optimization: All CT scans at this facility use at least one of these dose optimization techniques: automated exposure control; mA and/or kV adjustment per patient size (includes targeted exams where dose is matched to clinical indication); or iterative reconstruction. Contrast material: OMNI 350; Contrast volume: 100 ml; Contrast route: INTRAVENOUS (IV); REPORTING DATA: Count of CT and Cardiac NM exams in prior 12 months: This patient has received [address] and 0 known cardiac nuclear medicine studies in the 12 months prior to the current study. COMPARISON: CT head wo con* [id number] 05/27/2022 9:44 PM RADIATION DOSE METRICS: Total DLP (mGy-cm): 487.51 FINDINGS: Right common carotid artery: No stenosis. No dissection or occlusion. Right internal carotid artery: No stenosis of the extracranial segment. No dissection or occlusion. Right external carotid artery: No occlusion or stenosis of the origin. Left common carotid artery: No stenosis. No dissection or occlusion. Left internal carotid artery: No stenosis of the extracranial segment. No dissection or occlusion. Left external carotid artery: No occlusion or stenosis of the origin. Right vertebral artery: No stenosis. No dissection or occlusion. Left vertebral artery: No stenosis. No dissection or occlusion. Soft tissues: Normal. No significant soft tissue swelling. Bones/joints: No acute fracture. Lungs: Emphysematous changes in the visualized lung apices. CT/CT angio headneck* [id number] IMPRESSION: No large vessel stenosis or occlusion. IMPRESSION: No stenosis or occlusion of neck arteries. REFERENCES: NASCET CRITERIA. The degree of stenosis in the cervical segment of the internal carotid artery is based on NASCET criteria. Normal is no stenosis. Mild is less than 50% stenosis. Moderate is 50-69% stenosis. Severe is 70% to 99% stenosis. Total occlusion is no detectable patent lumen.
--- NOTE | 2022-05-27 21:22 | CTR_ITS ---
PROCEDURE INFORMATION: Exam: CT Head Without Contrast Exam date and time: 05/27/2022 9:44 PM Age: 46 years old Clinical indication: Pain; Headache not specified; Additional info: ROBLES TECHNIQUE: Imaging protocol: Computed tomography of the head without contrast. Radiation optimization: All CT scans at this facility use at least one of these dose optimization techniques: automated exposure control; mA and/or kV adjustment per patient size (includes targeted exams where dose is matched to clinical indication); or iterative reconstruction. REPORTING DATA: Count of CT and Cardiac NM exams in prior 12 months: This patient has received [address] and 0 known cardiac nuclear medicine studies in the 12 months prior to the current study. COMPARISON: No relevant prior studies available. RADIATION DOSE METRICS: Total DLP (mGy-cm): 1028.58 FINDINGS: Brain: Normal. No hemorrhage. Unremarkable white matter. No mass effect. Cerebral ventricles: No ventriculomegaly. Paranasal sinuses: Visualized sinuses are unremarkable. No fluid levels. Mastoid air cells: Visualized mastoid air cells are well aerated. Bones/joints: Unremarkable. No acute fracture. Soft tissues: Unremarkable. CT/CT head wo con* [id number] IMPRESSION: No acute intracranial abnormality.
--- NOTE | 2022-05-27 21:26 | W.ED.HA ---
HPI - Headache General: Chief Complaint: Headache Stated Complaint: headache Time Seen by Provider: 05/27/22 21:01 Source: patient Mode of arrival: ambulatory History of Present Illness: 46-year-old male he states he had a headache over the last 2 to 3 days he states pain is an 8 out of 10 he has had headaches in the past states this is worse than typical he has photophobia phonophobia he denies any migraine history but does have family history of migraines no fever no neck pain denies any injury. He denies having any fevers. No vomiting or diarrhea. Associated symptoms: Deny chest pain, fever(s), nausea, rash or vomiting Review of Systems Const: Denies: fever(s), chills, body aches or change in appetite Eyes: Denies: blurry vision or eye discomfort ENMT: Denies: throat pain or dental pain Card: Denies: chest pain Resp: Denies: dyspnea GI: Denies: abdominal pain, nausea, vomiting or diarrhea : Denies: dysuria Musc: Denies: neck pain or back pain Skin/Breast: Denies: rash Neuro: Reports: headache(s) Psych: Denies: depression Rik/Lymph: Denies: easy bruising All/Imm: Denies: urticaria PFSH ED PFSH: Medical History Anxiety disorder due to general medical condition with panic attack Cigarette smoker motivated to quit Cigarette smoker two packs a day or less COPD (chronic obstructive pulmonary disease) case management patient COPD exacerbation COPD with hypoxia Decompensated COPD with exacerbation (chronic obstructive pulmonary disease) Encounter for smoking cessation counseling Lipoma of chest wall 03/06/2021 3.5 x 6 cm right lateral chest wall probable lipoma Oxygen dependent Respiratory distress, acute Shortness of breath at rest Family History Other COPD (chronic obstructive pulmonary disease) Cancer Social History Smoking and tobacco status: current every day smoker cigarettes Packs smoked per day: 1 Second hand smoke exposure: Yes Alcohol intake: current Alcohol intake frequency: holidays/special occasions only Alcohol type: hard liquor Lives independently: Yes Marital status: Legally Current occupational status: disabled Current gender identity: Male Physical Exam Const: COMMON NORMALS: no acute distress, patient oriented x3 and healthy appearing HENMT: COMMON NORMALS: normocephalic and atraumatic HEAD & SCALP: normocephalic and atraumatic Eye: COMMON NORMALS: Equal, round and reactive pupils present and EOMs intact bilaterally PUPIL: Yes Equal, round and reactive pupils present Neck/C-Spine: COMMON NORMALS: full ROM and supple Chest: COMMONS NORMALS: normal inspection of the chest and normal palpation of entire chest wall Resp: COMMON NORMALS: normal respiratory effort, No retractions, No use of accessory muscles and clear to auscultation bilaterally AUSCULTATION: clear to auscultation bilaterally Cardio: COMMON NORMALS: regular rate, regular rhythm and No murmurs present (Cardio) RATE: regular rate RHYTHM: regular rhythm GI: COMMON NORMALS: Normal to inspection, nondistended, normoactive bowel sounds present, Soft to palpation, non-tender and no masses PALPATION: Yes Soft to palpation Extremity: COMMON NORMALS: normal to inspection and full ROM Neuro: COMMON NORMALS: patient oriented x3, moves all extremities and no focal motor deficits Psych: COMMON NORMALS: mental status grossly normal, Normal thought process present and cooperative THOUGHT PROCESS: Normal thought process present Skin: COMMON NORMALS: no rashes or lesions noted and no wounds GENERAL SKIN EXAM: no rashes or lesions noted Course Vital Signs: Vital signs: Vital Signs Temperature 97.4 F L 05/27/22 20:37 Pulse Rate 101 H 05/27/22 20:37 Respiratory Rate 24 H 05/27/22 20:37 Blood Pressure 157/94 05/27/22 20:37 Pulse Oximetry 92 05/27/22 20:37 Oxygen Delivery Me thod 05/27/22 20:37 Oxygen Flow Rate 2 05/27/22 20:37 MDM - Headache Medical Decision Making Patient presents here with a headache is likely migraine headache is improved here after Reglan Benadryl CTs here are normal no signs of bleed or meningitis he stable for discharge he is to follow-up with PCP and return if worsening he understands agrees to plan. Lab Data 05/27/22 21:36 05/27/22 21:[address] 05/27/22 21:22 IMPRESSION: No acute intracranial abnormality. Head/Neck CTA 05/27/22 21:22 IMPRESSION: No large vessel stenosis or occlusion. IMPRESSION: No stenosis or occlusion of neck arteries. REFERENCES: NASCET CRITERIA. The degree of stenosis in the cervical segment of the internal carotid artery is based on NASCET criteria. Normal is no stenosis. Mild is less than 50% stenosis. Moderate is 50-69% stenosis. Severe is 70% to 99% stenosis. Total occlusion is no detectable patent lumen. Laboratory Results WBC 10.5 10^3/uL (4.0-10.0) H 05/27/22 21:36 RBC 5.17 10^6/uL (4.1-5.3) 05/27/22 21:36 Hgb 14.7 g/dL (11.7-16.6) 05/27/22 21:36 Hct 47.1 % (42.0-52.0) 05/27/22 21:36 MCV 91.1 fl (80-94) 05/27/22 21:36 MCH 28.4 pg (28.0-34.0) 05/27/22 21:36 MCHC 31.2 g/dL (30.0-36.0) 05/27/22 21:36 RDW 14.2 % (12.1-15.1) 05/27/22 21:36 Plt Count 271 10^3/cmm (130-400) 05/27/22 21:36 MPV 9.9 fL (7.4-10.4) 05/27/22 21:36 Neut % (Auto) 73.1 % 05/27/22 21:36 Lymph % (Auto) 14.3 % 05/27/22 21:36 Rutherford % (Auto) 8.8 % 05/27/22 21:36 Eos % (Auto) 2.9 % 05/27/22 21:36 Baso % (Auto) 0.6 % 05/27/22 21:36 Neut # (Auto) 7.65 10^3/uL (1.8-7.7) 05/27/22 21:36 Lymph # (Auto) 1.5 10^3/uL (0.8-4.8) 05/27/22 21:36 Rutherford # (Auto) 0.9 10^3/uL (0.2-0.9) 05/27/22 21:36 Eos # (Auto) 0.3 10^3/uL (0.0-0.8) 05/27/22 21:36 Baso # (Auto) 0.1 10^3/uL (0.0-0.1) 05/27/22 21:36 Nucleated RBC % (auto) 0 % 05/27/22 21:36 Nucleated RBCs # 0.0 /100WBC 05/27/22 21:36 Sodium 135 mmol/L (136-145) L 05/27/22 21:36 Potassium 4.4 mmol/L (3.5-5.1) 05/27/22 21:36 Chloride 96 mmol/L (98-107) L 05/27/22 21:36 Carbon Dioxide 32 mmol/L (22-29) H 05/27/22 21:36 Anion Gap 11.4 (5-19) 05/27/22 21:36 BUN 13 mg/dL (6-20) 05/27/22 21:36 Creatinine 0.7 mg/dL (0.7-1.2) 05/27/22 21:36 GFR Calculation 120.4 mL/min (90-130) 05/27/22 21:36 Glucose 66 mg/dL (65-115) 05/27/22 21:36 Calculated Osmolality 278 mOsm/kg (285-295) L 05/27/22 21:36 Calcium 9.2 mg/dL (8.5-10.5) 05/27/22 21:36 Discharge Plan Discharge Patient Disposition: Home Clinical Impression: Headache Condition: Stable Prescriptions: No Action bupropion HCl 150 mg tablet sustained-release 12 hr 150 mg PO QAM Qty: 30 3RF (DME) Oxygen and supplies See Rx Instructions .Route .MEDSUPPLY Qty: 1 11RF Rx Instructions: As directed, 2 liters, continuous. levofloxacin 750 mg tablet 750 mg PO DAILY 7 Days Qty: 7 0RF sulfamethoxazole-trimethoprim [Bactrim DS] 800-160 mg tablet 1 tab PO BID 21 Days Qty: 42 0RF Spiriva with HandiHaler 18 mcg capsule, w/inhalation device 1 cap inhalation DAILY Qty: 30 5RF Rx Instructions: puncture 1 cap using device; one dose = 2 inhalations 340B meds (DME) nebulizer & suppies See Rx Instructions .Route .MEDSUPPLY Qty: 1 0RF Rx Instructions: As directed Home equipment hydroxyzine pamoate 50 mg capsule 50 mg PO Q8H PRN (Reason: Anxiety) sertraline 50 mg tablet 50 mg PO DAILY Singulair 10 mg tablet 10 mg PO DAILY Symbicort 160-4.5 mcg/actuation HFA aerosol inhaler 2 puff inhalation BID ipratropium-albuterol 20-100 mcg/actuation mist 2 puff inhalation Q8H PRN (Reason: Shortness Of Breath) prednisone 20 mg tablet 20 mg PO TID Qty: 15 0RF Rx Instructions: 1 p.o. 3 times daily x3 days, 1 p.o. twice daily x2 days, 1 p.o. daily x2 days albuterol sulfate 90 mcg/actuation HFA aerosol inhaler 2 inh INHALATION Q4H PRN (Reason: shortness of breath or wheezing) Qty: 18 0RF Discharge Orders: Discharge ED (Routine); Ordered 05/27/22 Ordered By: Randy Saldana Referrals: Bruno Lucas MD [Primary Care Provider] - 1-3 days Discharge Diet: Advance as tolerated Discharge Activity: Resume usual activity Patient Instructions: Acute Headache (ED) Coding Level of Care Code ED Reporter Anchor for Eb Chawla
[2022-05-27] MEDS: metoclopramide 5 mg/mL SDV 2 mL 10 MG IVP (21:35)
[2022-05-27] MEDS: diphenhydrAMINE 50 mg/mL SDV 1mL IVP (21:35)
--- NOTE | 2022-05-27 21:43 | PC.NURSE ---
to ct scan
[2022-05-27 22:22] LABS: Anion Gap 11.4 (5-19); Blood Urea Nitrogen 13 mg/dL (6-20); Calcium 9.2 mg/dL (8.5-10.5); Carbon Dioxide 32 mmol/L (22-29); Chloride 96 mmol/L (98-107); Glomerular Filtration Rate 120.4 mL/min (90-130); Glucose 66 mg/dL (65-115); Osmolality Calculated 278 mOsm/kg (285-295); Potassium 4.4 mmol/L (3.5-5.1); Sodium 135 mmol/L (136-145)
[2022-05-27 22:31] LABS: Basophils # 0.1 10^3/uL (0.0-0.1); Basophils % 0.6 %; Eosinophils # 0.3 10^3/uL (0.0-0.8); Eosinophils % 2.9 %; Hematocrit 47.1 % (42.0-52.0); Hemoglobin 14.7 g/dL (11.7-16.6); Lymphocytes # 1.5 10^3/uL (0.8-4.8); Lymphocytes % 14.3 %; Mean Corpuscular HGB Conc 31.2 g/dL (30.0-36.0); Mean Corpuscular Hemoglobin 28.4 pg (28.0-34.0); Mean Corpuscular Volume 91.1 fl (80-94); Mean Platelet Volume 9.9 fL (7.4-10.4); Monocytes # 0.9 10^3/uL (0.2-0.9); Monocytes % 8.8 %; Neutrophils # 7.65 10^3/uL (1.8-7.7); Neutrophils % 73.1 %; Nucleated Red Blood Cells % 0 %; Platelet Count 271 10^3/cmm (130-400); Red Blood Count 5.17 10^6/uL (4.1-5.3); Red Cell Distribution Width 14.2 % (12.1-15.1); White Blood Count 10.5 10^3/uL (4.0-10.0)
[2022-05-27 22:40] VITALS: BP 151/93; PULSE 77; RESP 16; O2SAT 93
== END 2022-05-27 22:46 | disposition home or self-care (01) ==
PROVIDERS: Emergency Provider Emergency Medicine; PCP Family Medicine Adult Medicine
DX: R51.9 Headache, unspecified (principal); J44.9 Chronic obstructive pulmonary disease, unspecified; Z99.81 Dependence on supplemental oxygen; F17.210 Nicotine dependence, cigarettes, uncomplicated
CPT/HCPCS: 70450; 70496; 70498; 80048; 85025; 96374; 96375; 99285; J1200; J2765; Q9967

== ENCOUNTER 2022-08-15 12:07 | Emergency (ER) | payer MEDICAID, SELFPAY ==
[2022-08-15 12:23] VITALS: BP 148/89; PULSE 118; RESP 18; TEMP 36.6; O2SAT 90; BMI 21.2
== END 2022-08-15 13:45 | disposition left against medical advice (07) ==
LOC: ER 12:33
PROVIDERS: Emergency Provider Family Medicine; PCP Family Medicine Adult Medicine
DX: Z53.21 Procedure and treatment not carried out due to patient leaving prior to being seen by health care provider (principal)

== ENCOUNTER 2022-10-06 04:39 | Emergency (ER) | payer MEDICAID, SELFPAY ==
[2022-10-06 04:46] VITALS: BP 170/116; PULSE 117; RESP 25; O2SAT 89; BMI 23.6
--- NOTE | 2022-10-06 04:54 | W.ED.FALL ---
HPI - Fall General: Chief Complaint: Fall Stated Complaint: passed out fell into a fan Time Seen by Provider: 10/06/22 04:48 History of Present Illness: 47-year-old male presents to the emergency department with complaints of a superficial laceration to the right eyebrow. He states that approximately 3 AM he was sitting in his chair at home with his fan blowing on him when he fell asleep falling forward into the blades of his fan. He denies loss of consciousness, difficulty with vision or neck pain. He states that he does use home oxygen for his COPD. He states his current pain is a 2 out of 10 and aching. Review of Systems General: Reports: 10 or more systems reviewed and unremarkable except in HPI and below Skin/Breast: Reports: other (Laceration right eyebrow) [facility] ED PFSH: Medical History Anxiety disorder due to general medical condition with panic attack Cigarette smoker motivated to quit Cigarette smoker two packs a day or less COPD (chronic obstructive pulmonary disease) case management patient COPD exacerbation COPD with hypoxia Decompensated COPD with exacerbation (chronic obstructive pulmonary disease) Encounter for smoking cessation counseling Lipoma of chest wall 03/06/2021 3.5 x 6 cm right lateral chest wall probable lipoma Oxygen dependent Respiratory distress, acute Shortness of breath at rest Family History Other COPD (chronic obstructive pulmonary disease) Cancer Social History Smoking and tobacco status: current every day smoker cigarettes Packs smoked per day: 1 Second hand smoke exposure: Yes Alcohol intake: current Alcohol intake frequency: holidays/special occasions only Alcohol type: hard liquor Substance/Drug Use: current Other substance/drug use details: methadone Lives independently: Yes Marital status: Legally Current occupational status: disabled Current gender identity: Male Physical Exam Const: COMMON NORMALS: no acute distress, average body habitus, patient oriented x3, no limitations and alert HENMT: HEAD & SCALP: laceration (Right supraorbital region-lateral aspect) FACE & SINUS: sinuses nontender and abrasion (Right forehead, right supraorbital region, supraorbital region lateral aspe) on the right Eye: COMMON NORMALS: Equal, round and reactive pupils present, EOMs intact bilaterally and normal visual santiago by confrontation PUPIL: Yes Equal, round and reactive pupils present Neck/C-Spine: COMMON NORMALS: full ROM, supple and no meningeal signs Resp: COMMON NORMALS: normal respiratory effort and clear to auscultation bilaterally AUSCULTATION: clear to auscultation bilaterally Cardio: COMMON NORMALS: regular rate, regular rhythm, S1 normal heart sound present, S2 normal heart sound present and Peripheral pulses 2+ throughout RATE: regular rate RHYTHM: regular rhythm HEART SOUNDS: S1 normal heart sound present and S2 normal heart sound present PERIPHERAL PULSES: Peripheral pulses 2+ throughout GI: COMMON NORMALS: Normal to inspection, nondistended, normoactive bowel sounds present, Soft to palpation and non-tender PALPATION: Yes Soft to palpation Extremity: COMMON NORMALS: normal to inspection, full ROM and capillary refill normal Neuro: COMMON NORMALS: patient oriented x3, moves all extremities, no focal motor deficits and no sensory deficits noted SENSORIUM/ORIENTATION: Yes alert MENINGEAL SIGNS: Yes no meningeal signs Psych: COMMON NORMALS: mental status grossly normal, Normal thought process present and cooperative THOUGHT PROCESS: Normal thought process present Skin: GENERAL SKIN EXAM: other (Laceration right supraorbital region over the eyebrow) Course Vital Signs: Vital signs: Vital Signs Pulse Rate 110 H 10/06/22 04:55 Respiratory Rate 20 H 10/06/22 04:55 Blood Pressure 152/106 10/06/22 04:55 Pulse Oximetry 90 10/06/22 04:55 Oxygen Delivery Me thod Room Air 10/06/22 04:55 MDM - Fall Medical Decision Making Physical exam completed and documented, patient does have a superficial 1 cm laceration to the right lateral aspect supraorbital region. I will provide him surgical skin adhesive repair for this superficial laceration. We have provided wound care and cleaning to the additional abrasions to the right forehead. Patient states that his tetanus shot is up-to-date. We have provided anticipatory guidance and discharge instructions and have advised him to follow-up with his primary care provider as needed. Patient verbalized understanding of all information is provided and was discharged home in stable condition and in no acute distress Medical Records I reviewed the patient's medical records. Discharge Plan Discharge Patient Disposition: Home Clinical Impression: Laceration of eyebrow and forehead Condition: Stable Prescriptions: No Action bupropion HCl 150 mg tablet sustained-release 12 hr 150 mg PO QAM Qty: 30 3RF (DME) Oxygen and supplies See Rx Instructions .Route .MEDSUPPLY Qty: 1 11RF Rx Instructions: As directed, 2 liters, continuous. levofloxacin 750 mg tablet 750 mg PO DAILY 7 Days Qty: 7 0RF sulfamethoxazole-trimethoprim [Bactrim DS] 800-160 mg tablet 1 tab PO BID 21 Days Qty: 42 0RF (DME) nebulizer & suppies See Rx Instructions .Route .MEDSUPPLY Qty: 1 0RF Rx Instructions: As directed Home equipment sertraline 50 mg tablet See Rx Instructions .ROUTE .COMPLEX Qty: 30 5RF Dose Instruction: TAKE 1 TABLET BY MOUTH ONCE DAILY FOR ANXIETY Rx Instructions: TAKE 1 TABLET BY MOUTH ONCE DAILY FOR ANXIETY Spiriva with HandiHaler 18 mcg capsule, w/inhalation device 1 cap inhalation DAILY Qty: 30 5RF Rx Instructions: puncture 1 cap using device; one dose = 2 inhalations 340B meds budesonide-formoterol [Symbicort] 160-4.5 mcg/actuation HFA aerosol inhaler 2 puff inhalation BID Qty: 10.2 4RF montelukast [Singulair] 10 mg tablet 10 mg PO DAILY Qty: 90 3RF hydroxyzine pamoate 50 mg capsule 50 mg PO Q8H PRN (Reason: Anxiety) ipratropium-albuterol 20-100 mcg/actuation mist 2 puff inhalation Q8H PRN (Reason: Shortness Of Breath) prednisone 20 mg tablet 20 mg PO TID Qty: 15 0RF Rx Instructions: 1 p.o. 3 times daily x3 days, 1 p.o. twice daily x2 days, 1 p.o. daily x2 days albuterol sulfate 90 mcg/actuation HFA aerosol inhaler 2 inh INHALATION Q4H PRN (Reason: shortness of breath or wheezing) Qty: 18 0RF Discharge Orders: Discharge ED (Routine); Ordered 10/06/22 Ordered By: Catracho Mendoza Referrals: Bruno Lucas MD [Primary Care Provider] - Patient Instructions: Opioid Safety, Pain Management Coding Level of Care Code ED Body Mechanic Apprentice for Eb Chawla
[2022-10-06 04:55] VITALS: BP 152/106; PULSE 110; RESP 20; O2SAT 90
[2022-10-06 05:09] VITALS: BP 147/107; PULSE 106; RESP 23; O2SAT 90
== END 2022-10-06 05:12 | disposition home or self-care (01) ==
PROVIDERS: Emergency Provider Internal Medicine; PCP Family Medicine Adult Medicine
DX: S01.111A Laceration without foreign body of right eyelid and periocular area, initial encounter (principal); S01.81XA Laceration without foreign body of other part of head, initial encounter; F17.210 Nicotine dependence, cigarettes, uncomplicated; J44.9 Chronic obstructive pulmonary disease, unspecified; Z99.81 Dependence on supplemental oxygen; W22.8XXA Striking against or struck by other objects, initial encounter
CPT/HCPCS: 99282

== ENCOUNTER 2022-10-12 19:04 | Emergency (ER) | payer MEDICAID, SELFPAY ==
[2022-10-12 19:16] VITALS: BP 155/101; PULSE 132; TEMP 36.7; O2SAT 88; BMI 22.8
[2022-10-12] MEDS: ketorolac 30 mg/mL INJ IVP (19:58)
[2022-10-12 20:06] LABS: Basophils # 0.1 10^3/uL (0.0-0.1); Basophils % 0.5 %; Eosinophils # 0.4 10^3/uL (0.0-0.8); Eosinophils % 2.5 %; Hematocrit 43.8 % (42.0-52.0); Hemoglobin 13.2 g/dL (11.7-16.6); Lymphocytes # 1.7 10^3/uL (0.8-4.8); Lymphocytes % 9.7 %; Mean Corpuscular HGB Conc 30.1 g/dL (30.0-36.0); Mean Corpuscular Hemoglobin 27.7 pg (28.0-34.0); Mean Platelet Volume 10.1 fL (7.4-10.4); Monocytes # 1.3 10^3/uL (0.2-0.9); Monocytes % 7.2 %; Neutrophils # 13.87 10^3/uL (1.8-7.7); Neutrophils % 79.6 %; Nucleated Red Blood Cells % 0 %; Platelet Count 273 10^3/cmm (130-400); Red Blood Count 4.76 10^6/uL (4.1-5.3); Red Cell Distribution Width 15.8 % (12.1-15.1); White Blood Count 17.4 10^3/uL (4.0-10.0)
[2022-10-12 20:41] LABS: Alanine Aminotransferase 79 U/L (0-41); Albumin Level 3.4 g/dL (3.5-5.2); Alkaline Phosphatase 137 U/L (40-130); Anion Gap 12.4 (5-19); Aspartate Amino Transferase 60 U/L (0-40); Blood Urea Nitrogen 18 mg/dL (6-20); Calcium 9.2 mg/dL (8.5-10.5); Carbon Dioxide 33 mmol/L (22-29); Chloride 97 mmol/L (98-107); Globulin 3.4 g/dL (1.3-4.6); Glomerular Filtration Rate 143.2 mL/min (90-130); Glucose 137 mg/dL (65-115); Magnesium 1.6 mg/dL (1.7-2.3); NT Pro B Type Natriuretic Pept 6889 pg/mL (0-125); Osmolality Calculated 290 mOsm/kg (285-295); Potassium 4.4 mmol/L (3.5-5.1); Sodium 138 mmol/L (136-145); Total Bilirubin 0.5 mg/dL (0.15-1.2); Total Protein 6.8 g/dL (6.6-8.7)
[2022-10-12 20:55] VITALS: BP 145/86; PULSE 103; RESP 16; O2SAT 94
--- NOTE | 2022-10-12 21:02 | XRR_ITS ---
PROCEDURE INFORMATION: Exam: XR Chest Exam date and time: 10/12/2022 9:21 PM Age: 47 years old Clinical indication: Other: Edema; Additional info: Swelling TECHNIQUE: Imaging protocol: Radiologic exam of the chest. Views: 1 view. COMPARISON: CR XR chest 1V portable [id number] 02/26/2022 1:31 PM FINDINGS: Lungs: There are no infiltrates. Pleural spaces: There are no pleural effusions. There is no pneumothorax. Heart/Mediastinum: The cardiomediastinal silhouette is within normal limits. Bones/joints: There are no fractures or dislocations noted. Intraperitoneal space: There is no free intraperitoneal air. XR/XR chest 1V portable [id number] IMPRESSION: No acute cardiopulmonary disease.
--- NOTE | 2022-10-12 22:33 | ED_ITS ---
HPI - General Adult General: Stated complaint: Feet swelling Time Seen by Provider: 10/12/22 19:45 History of Present Illness: 47-year-old male with complex medical history including oxygen dependent COPD. Presents emergency room with diffuse leg swelling and bilateral leg pain. She f urther reviews that he does have COPD and wears about 2 L of oxygen all the time. Still smokes about half a pack a day. Describes the lower extremity pain as aching sensation with severity of 4 out of 10 mostly on the anterior aspect of the leg. Has any cough, coughing up blood or vomiting blood. No chest pain, numbness or tingling. Associated symptoms: Reports dyspnea (chronic from copd ) Review of Systems General: Reports: 10 or more systems reviewed and unremarkable except in HPI and below Resp: Reports: dyspnea (chronic from copd ); Denies: productive cough or non-productive cough Musc: Reports: extremity pain (bilatral jha pain ) and extremity swelling; Denies: back pain PFS ED PFSH: Medical History (Updated 10/14/22 @ 00:01 by AMBREEN Pruett) Anxiety disorder due to general medical condition with panic attack Cigarette smoker motivated to quit Cigarette smoker two packs a day or less COPD (chronic obstructive pulmonary disease) case management patient COPD exacerbation COPD with hypoxia Decompensated COPD with exacerbation (chronic obstructive pulmonary disease) Encounter for smoking cessation counseling Lipoma of chest wall 03/06/2021 3.5 x 6 cm right lateral chest wall probable lipoma Oxygen dependent Respiratory distress, acute Shortness of breath at rest Family History Other COPD (chronic obstructive pulmonary disease) Cancer Social History (Updated 10/13/22 @ 19:07 by Vargas Merritt MD) Smoking and tobacco status: current every day smoker cigarettes Packs smoked per day: 1 Second hand smoke exposure: Yes Alcohol intake: current Alcohol intake frequency: holidays/special occasions only Alcohol type: hard liquor Substance/Drug Use: current Other substance/drug use details: IV morphine Lives independently: Yes Marital status: Legally Current occupational status: disabled Current gender identity: Male Physical Exam Const: COMMON NORMALS: no acute distress, average body habitus, patient oriented x3, no limitations, healthy appearing, alert and well nourished HENMT: COMMON NORMALS: normocephalic, atraumatic, hearing grossly normal bilaterally, external ears normal, EAC's normal, TM's normal bilaterally, Normal external nose present, Normal nasal mucous membranes and turbinates present, moist oral mucous membranes, oropharynx normal, dentition normal and gingiva normal HEAD & SCALP: normocephalic and atraumatic NOSE: Normal external nose present and Normal nasal mucous membranes and turbinates present EXTERNAL EAR: Yes external ears normal EXTERNAL AUDITORY CANAL: EAC's normal TYMPANIC MEMBRANE: TM's normal bilaterally Chest: COMMONS NORMALS: normal inspection of the chest, normal palpation of entire chest wall, normal inspection of the breasts and normal palpation of the breasts Breast/axilla inspection: Yes normal inspection of the breasts BREAST/AXILLA PALPATION: Yes normal palpation of the breasts Resp: COMMON NORMALS: normal respiratory effort, No retractions, No use of accessory muscles and percussion normal AUSCULTATION: no crackles, no rales, wheezes and diminished lung sounds PERCUSSION: percussion normal Cardio: COMMON NORMALS: regular rate, regular rhythm, S1 normal heart sound present, S2 normal heart sound present, No gallops present (Cardio), No clicks present (Cardio), No murmurs present (Cardio), No rub (Cardio) and Peripheral pulses 2+ throughout RATE: regular rate RHYTHM: regular rhythm HEART SOUNDS: S1 normal heart sound present and S2 normal heart sound present PERIPHERAL PULSES: Peripheral pulses 2+ throughout Extremity: NARRATIVE EXTREMITY EXAM: diffuse jha tenderness no calf tenderness or palpable cord Neuro: COMMON NORMALS: patient oriented x3 SENSORIUM/ORIENTATION: Yes alert Course Vital Signs: Vital signs: Vital Signs Temperature 98.1 F 10/12/22 23:16 Pulse Rate 97 10/12/22 23:16 Respiratory Rate 16 10/12/22 23:16 Blood Pressure 144/106 10/12/22 23:16 Pulse Oximetry 94 10/12/22 23:16 Oxygen Delivery Me thod Nasal Cannula 10/12/22 20:55 Oxygen Flow Rate 2 10/12/22 20:55 MDM - General Adult Medical Decision Making Patient made comfortable in emergency room. Patient was given Lasix in the ER and extensive work-up including CBC, CMP, chest x-ray. He was reassured and close follow-up cardiology recommended further evaluation and treatment. Differential Diagnosis DVT, colitis, PID, compartment syndrome, Medical Records Patient was given Lasix in emergency room. Patient was reassured and will be discharged on Lasix for few days. General was found to have elevated WBC but patient is currently taking steroids. Lab Data 10/12/22 20:00 10/12/22 20:00 Radiology Impressions Chest X-Ray 10/12/22 21:02 IMPRESSION: No acute cardiopulmonary disease. Laboratory Results WBC 17.4 10^3/uL (4.0-10.0) H 10/12/22 20:00 RBC 4.76 10^6/uL (4.1-5.3) 10/12/22 20:00 Hgb 13.2 g/dL (11.7-16.6) 10/12/22 20:00 Hct 43.8 % (42.0-52.0) 10/12/22 20:00 MCV 92.0 fl (80-94) 10/12/22 20:00 MCH 27.7 pg (28.0-34.0) L 10/12/22 20:00 MCHC 30.1 g/dL (30.0-36.0) 10/12/22 20:00 RDW 15.8 % (12.1-15.1) H 10/12/22 20:00 Plt Count 273 10^3/cmm (130-400) 10/12/22 20:00 MPV 10.1 fL (7.4-10.4) 10/12/22 20:00 Neut % (Auto) 79.6 % 10/12/22 20:00 Lymph % (Auto) 9.7 % 10/12/22 20:00 [place] % (Auto) 7.2 % 10/12/22 20:00 Eos % (Auto) 2.5 % 10/12/22 20:00 Baso % (Auto) 0.5 % 10/12/22 20:00 Neut # (Auto) 13.87 10^3/uL (1.8-7.7) H 10/12/22 20:00 Lymph # (Auto) 1.7 10^3/uL (0.8-4.8) 10/12/22 20:00 [place] # (Auto) 1.3 10^3/uL (0.2-0.9) H 10/12/22 20:00 Eos # (Auto) 0.4 10^3/uL (0.0-0.8) 10/12/22 20:00 Baso # (Auto) 0.1 10^3/uL (0.0-0.1) 10/12/22 20:00 Nucleated RBC % (auto) 0 % 10/12/22 20:00 Nucleated RBCs # 0.0 /100WBC 10/12/22 20:00 Sodium 138 mmol/L (136-145) 10/12/22 20:00 Potassium 4.4 mmol/L (3.5-5.1) 10/12/22 20:00 Chloride 97 mmol/L (98-107) L 10/12/22 20:00 Carbon Dioxide 33 mmol/L (22-29) H 10/12/22 20:00 Anion Gap 12.4 (5-19) 10/12/22 20:00 BUN 18 mg/dL (6-20) 10/12/22 20:00 Creatinine 0.6 mg/dL (0.7-1.2) L 10/12/22 20:00 GFR Calculation 143.2 mL/min (90-130) H 10/12/22 20:00 Glucose 137 mg/dL (65-115) H 10/12/22 20:00 Calculated Osmolality 290 mOsm/kg (285-295) 10/12/22 20:00 Calcium 9.2 mg/dL (8.5-10.5) 10/12/22 20:00 Magnesium 1.6 mg/dL (1.7-2.3) L 10/12/22 20:00 Total Bilirubin 0.5 mg/dL (0.15-1.2) 10/12/22 20:00 AST 60 U/L (0-40) H 10/12/22 20:00 ALT 79 U/L (0-41) H 10/12/22 20:00 Alkaline Phosphatase 137 U/L (40-130) H 10/12/22 20:00 NT-Pro-B Natriuret Pep 6889 pg/mL (0-125) H 10/12/22 20:00 Total Protein 6.8 g/dL (6.6-8.7) 10/12/22 20:00 Albumin 3.4 g/dL (3.5-5.2) L 10/12/22 20:00 Globulin 3.4 g/dL (1.3-4.6) 10/12/22 20:00 Discharge Plan Discharge Patient Disposition: Home Clinical Impression: Decompensated COPD with exacerbation (chronic obstructive pulmonary disease), Pain and swelling of lower leg Condition: Stable Prescriptions: No Action bupropion HCl 150 mg tablet sustained-release 12 hr 150 mg PO QAM Qty: 30 3RF (DME) Oxygen and supplies See Rx Instructions .Route .MEDSUPPLY Qty: 1 11RF Rx Instructions: As directed, 2 liters, continuous. (DME) nebulizer & suppies See Rx Instructions .Route .MEDSUPPLY Qty: 1 0RF Rx Instructions: As directed Home equipment sertraline 50 mg tablet See Rx Instructions .ROUTE .COMPLEX Qty: 30 5RF Dose Instruction: TAKE 1 TABLET BY MOUTH ONCE DAILY FOR ANXIETY Rx Instructions: TAKE 1 TABLET BY MOUTH ONCE DAILY FOR ANXIETY Spiriva with HandiHaler 18 mcg capsule, w/inhalation device 1 cap inhalation DAILY Qty: 30 5RF Rx Instructions: puncture 1 cap using device; one dose = 2 inhalations 340B meds budesonide-formoterol [Symbicort] 160-4.5 mcg/actuation HFA aerosol inhaler 2 puff inhalation BID Qty: 10.2 4RF montelukast [Singulair] 10 mg tablet 10 mg PO DAILY Qty: 90 3RF hydroxyzine pamoate 50 mg capsule 50 mg PO Q8H PRN (Reason: Anxiety) ipratropium-albuterol 20-100 mcg/actuation mist 2 puff inhalation Q8H PRN (Reason: Shortness Of Breath) albuterol sulfate 90 mcg/actuation HFA aerosol inhaler 2 inh INHALATION Q4H PRN (Reason: shortness of breath or wheezing) Qty: 18 0RF Discharge Orders: Discharge ED (Routine); Ordered 10/12/22 Ordered By: Carlos Mello Referrals: Bruno Lucas MD [Primary Care Provider] - Discharge Diet: Advance as tolerated Discharge Activity: Resume usual activity Patient Instructions: Opioid Safety, Pain Management Coding Level of Care Code ED Push Connector Assembler for Eb Chawla
[2022-10-12 23:08] VITALS: BP 144/106; PULSE 97; RESP 16; O2SAT 94
[2022-10-12] MEDS: FUROsemide 10 mg/mL SDV 2mL 20 MG IVP (23:08)
[2022-10-12 23:16] VITALS: BP 144/106; PULSE 97; RESP 16; TEMP 36.7; O2SAT 94
== END 2022-10-12 23:17 | disposition home or self-care (01) ==
PROVIDERS: Emergency Provider Family Medicine; PCP Family Medicine Adult Medicine
DX: M79.89 Other specified soft tissue disorders (principal); M79.605 Pain in left leg; M79.604 Pain in right leg; J44.1 Chronic obstructive pulmonary disease with (acute) exacerbation; Z99.81 Dependence on supplemental oxygen; F17.210 Nicotine dependence, cigarettes, uncomplicated
CPT/HCPCS: 71045; 80053; 83735; 83880; 85025; 96374; 96375; 99284; J1885; J1940

== ENCOUNTER 2022-10-13 15:41 | Inpatient (IN) | payer MEDICAID, SELFPAY ==
[2022-10-13] VITALS (62 sets, daily range): BP systolic 130–171; BP diastolic 82–124; PULSE 113–133; RESP 16–38; TEMP 36.7–36.8; O2SAT 86–97; BMI 23.6
--- NOTE | 2022-10-13 | CTR_ITS ---
[facility] Final Radiology Report Call: [phone] assistance Online chat: [email or web address] Name: FELIPE PICKARD Age: 47Years M Date: 10/13/2022 SSN: -- : 1975 Study: CTA CHEST Requesting Physician: ANALI GRAVES Images: [id number] Add?l Studies: Provided Clinical History: Page 1 of 2 PROCEDURE INFORMATION: Exam: CTA Chest With Contrast Exam date and time: 10/13/2022 7:30 PM Age: 47 years old Clinical indication: Shortness of breath TECHNIQUE: Imaging protocol: Computed tomographic angiography of the chest with contrast. Exam focused on the arteries. 3D rendering (Not supervised by radiologist): MIP and/or 3D reconstructed images were created by the technologist. Radiation optimization: All CT scans at this facility use at least one of these dose optimization techniques: automated exposure control; mA and/or kV adjustment per patient size (includes targeted exams where dose is matched to clinical indication); or iterative reconstruction. Contrast material: OMNI 350; Contrast volume: 100 ml; Contrast route: INTRAVENOUS (IV); REPORTING DATA: Count of CT and Cardiac NM exams in prior 12 months: This patient has received 0 known CTs and 0 known cardiac nuclear medicine studies in the 12 months prior to the current study. COMPARISON: No relevant prior studies available. RADIATION DOSE METRICS: Total DLP (mGy-cm): 326.41 FINDINGS: Pulmonary arteries: Normal. No pulmonary emboli. Aorta: Unremarkable. No aortic aneurysm. No aortic dissection. Lungs: There is diffuse emphysematous disease, there is motion noted in the lung bases. There are multiple calcified nodules which are all subcentimeter, the largest of which is in the right middle lobe measuring 3.6 mm in short axis. There is a 37.6 x 32.2 mm bulla in the retrosternal region. Pleural spaces: Unremarkable. No pneumothorax. No pleural effusion. Heart: Unremarkable. No cardiomegaly. No pericardial effusion. Lymph nodes: Unremarkable. No enlarged lymph nodes. Bones/joints: Unremarkable. No acute fracture. Soft tissues: Unremarkable . IMPRESSION: 1. No pulmonary emboli. 2. Diffuse emphysematous disease. 3. Multiple subcentimeter calcified nodules bilaterallFor patients at low risk (minimal or absent history of smoking and of other known risk factors), no routine follow-up is indicated. 4. For patients at high risk (history of smoking or of other known risk factors), consider optional CT Chest at 12 months. (Reference: Bridger) REFERENCES: Bridger Roth, et al. Guidelines for Management of Incidental Pulmonary Nodules Detected on CT Images: From the Fleischner Society 2017. Radiology. 2017;284(1):228-243. Thank you for allowing us to participate in the care of your patient. Dictated and Authenticated by: Vikash Boucher MD 10/13/2022 8:14 PM Central Time ([place] & Val) SHARON
--- NOTE | 2022-10-13 16:04 | XRR_ITS ---
PROCEDURE INFORMATION: Exam: XR Chest Exam date and time: 10/13/2022 4:10 PM Age: 47 years old Clinical indication: Cough and dyspnea; Additional info: Dyspnea/cough TECHNIQUE: Imaging protocol: Radiologic exam of the chest. Views: 1 view. COMPARISON: CR (CHEST, ) 10/12/2022 9:21 PM FINDINGS: Lungs: Several scattered granulomas are again seen. The lungs are free of acute disease. Pleural spaces: Unremarkable. No pleural effusion. No pneumothorax. Heart/Mediastinum: Unremarkable. No cardiomegaly. Bones/joints: Unremarkable. XR/XR chest 1V portable [id number] IMPRESSION: Nonacute findings.
--- NOTE | 2022-10-13 16:15 | ED_ITS ---
HPI - SOB/Dyspnea General: Chief Complaint: Shortness of Breath/Dyspnea Stated Complaint: SOB Time Seen by Provider: 10/13/22 16:02 Source: patient Mode of arrival: ambulatory History of Present Illness: HPI Narrative: 47-year-old male presents emergency room complaining of shortness of breath. Patient has history of COPD still smokes half pack a day. Complaining increasing shortness of breath with orthopnea patient was here yesterday was diuresed and improved and discharged home. He denies any fever or productive cough. MD elicited complaint: shortness of breath and cough Pertinent past history: COPD and congestive heart failure Onset (ago): day(s) Timing: constant Exacerbating factors: exertion and coughing Relieving factors: oxygen, rest, bronchodilators and upright position Known history of: COPD and congestive heart failure Associated symptoms: Reports chest congestion and cough; Deny abdominal pain, chest pain, diaphoresis, dizziness, extremity pain, fev er(s), hemoptysis, lightheadedness, myalgias, nausea, orthopnea, palpitations, paresthesias, polydipsia, polyuria, rash, sense of impending doom, syncope or vomiting Treatment prior to arrival: none Review of Systems Const: Reports: fatigue and malaise; Denies: fever(s), chills or diaphoresis Card: Denies: chest pain, palpitations, lightheadedness, syncope or orthopnea Resp: Reports: dyspnea, non-productive cough, wheezing and chest congestion; Denies: hemoptysis GI: Denies: abdominal pain, nausea or vomiting : Denies: dysuria, urinary frequency or urinary urgency Musc: Denies: extremity pain Neuro: Denies: dizziness Endo: Denies: polyuria or polydipsia PFSH ED PFSH: Medical History (Updated 10/16/22 @ 16:59 by Migue Menjivar DO) Anxiety disorder due to general medical condition with panic attack Cigarette smoker two packs a day or less COPD with hypoxia Decompensated COPD with exacerbation (chronic obstructive pulmonary disease) Lipoma of chest wall 03/06/2021 3.5 x 6 cm right lateral chest wall probable lipoma Oxygen dependent Family History Other COPD (chronic obstructive pulmonary disease) Cancer Social History (Updated 10/13/22 @ 19:07 by Vargas Merritt MD) Smoking and tobacco status: current every day smoker cigarettes Packs smoked per day: 1 Second hand smoke exposure: Yes Alcohol intake: current Alcohol intake frequency: holidays/special occasions only Alcohol type: hard liquor Substance/Drug Use: current Other substance/drug use details: IV morphine Lives independently: Yes Marital status: Legally Current occupational status: disabled Current gender identity: Male Physical Exam Const: GENERAL APPEARANCE: cooperative and comfortable ORIENTATION/CONSCIOUSNESS: Yes awake, Yes oriented to person, Yes oriented to place and Yes oriented to time HENMT: COMMON NORMALS: normocephalic, atraumatic and hearing grossly normal bilaterally HEAD & SCALP: normocephalic and atraumatic Resp: EFFORT & INSPECTION: Yes tachypneic AUSCULTATION: rhonchi and wheezes Cardio: COMMON NORMALS: regular rhythm and No murmurs present (Cardio) RATE: tachycardic RHYTHM: regular rhythm GI: COMMON NORMALS: Soft to palpation and No hepatosplenomegaly present AUSCULTATION: Yes normoactive bowel sounds PALPATION: Yes Soft to palpation, No Tenderness to palpation present (GI), No Guarding due to palpation present (GI) and Yes No hepatosplenomegaly present Extremity: COMMON NORMALS: normal to inspection, capillary refill normal and no calf tenderness GENERAL: Yes edema Neuro: SENSORIUM/ORIENTATION: Yes oriented to person, Yes oriented to place and Yes oriented to time Skin: COMMON NORMALS: no rashes or lesions noted GENERAL SKIN EXAM: no rashes or lesions noted Course Vital Signs: Vital signs: Vital Signs Temperature 98.5 F 10/14/22 17:17 Pulse Rate 96 10/14/22 17:17 Respiratory Rate 16 10/14/22 17:17 Blood Pressure 128/77 10/14/22 17:17 Pulse Oximetry 91 10/14/22 17:17 Oxygen Delivery Me thod Nasal Cannula 10/14/22 15:07 Oxygen Flow Rate 2 10/14/22 13:20 MDM - SOB/Dyspnea Medical Decision Making Diuresis IV steroids and nebulizers. Mild relief of symptoms but still requiring oxygen. Patient is significantly fluid overloaded. Will admit to hospitalist orders written Medical Records I reviewed the patient's medical records. Lab Data I reviewed the patient's lab results. 10/14/22 03:51 10/14/22 03:51 Labs/Radiology: Radiology Impressions Chest X-Ray 10/13/22 16:04 IMPRESSION: Nonacute findings. Laboratory Results WBC 15.2 10^3/uL (4.0-10.0) H 10/13/22 16:24 RBC 4.68 10^6/uL (4.1-5.3) 10/13/22 16:24 Hgb 12.9 g/dL (11.7-16.6) 10/13/22 16:24 Hct 42.1 % (42.0-52.0) 10/13/22 16:24 MCV 90.0 fl (80-94) 10/13/22 16:24 MCH 27.6 pg (28.0-34.0) L 10/13/22 16:24 MCHC 30.6 g/dL (30.0-36.0) 10/13/22 16:24 RDW 15.5 % (12.1-15.1) H 10/13/22 16:24 Plt Count 278 10^3/cmm (130-400) 10/13/22 16:24 MPV 9.9 fL (7.4-10.4) 10/13/22 16:24 Neut % (Auto) 83.5 % 10/13/22 16:24 Lymph % (Auto) 8.9 % 10/13/22 16:24 [place] % (Auto) 5.8 % 10/13/22 16:24 Eos % (Auto) 0.7 % 10/13/22 16: Baso % (Auto) 0.2 % 10/13/22 16:24 Neut # (Auto) 12.69 10^3/uL (1.8-7.7) H 10/13/22 16:24 Lymph # (Auto) 1.4 10^3/uL (0.8-4.8) 10/13/22 16:24 [place] # (Auto) 0.9 10^3/uL (0.2-0.9) 10/13/22 16:24 Eos # (Auto) 0.1 10^3/uL (0.0-0.8) 10/13/22 16:24 Baso # (Auto) 0.0 10^3/uL (0.0-0.1) 10/13/22 16:24 Nucleated RBC % (auto) 0 % 10/13/22 16: Nucleated RBCs # 0.0 /100WBC 10/13/22 16:24 D-Dimer 1.54 ug/mIFEU (0-0.59) H 10/13/22 16:24 Specimen Type Arterial 10/13/22 16:27 Sample Site Radial, left 10/13/22 16:27 ABG pH 7.48 (7.35-7.45) H 10/13/22 16:27 ABG pCO2 49.2 mmHg (35-45) H 10/13/22 16:27 ABG pO2 70.7 mmHg (80.0-100.0) L 10/13/22 16: ABG HCO3 36.4 mmol/L (22-26) H 10/13/22 16:27 ABG O2 Saturation 96.5 10/13/22 16: ABG Base Excess 11.1 mmol/L (-2.0-2.0) H 10/13/22 16:27 Gurpreet Test Pos 10/13/22 16:27 A-a O2 Gradient 9.0 mmHg (5-10) 10/13/22 16:27 Hematocrit 41.4 % (42-52) L 10/13/22 16:27 Hgb O2 Saturation 92.9 % (95-100) L 10/13/22 16:27 Carboxyhemoglobin 3.5 %THgb (0.4-20.1) 10/13/22 16:27 Methemoglobin 0.2 % (0.4-1.5) L 10/13/22 16:27 Total Hemoglobin 13.5 g/dL (14-18) L 10/13/22 16:27 Sodium 136.0 mmol/L (131-143) 10/13/22 16:27 Potassium 4.3 mmol/L (3.5-5.0) 10/13/22 16:27 Glucose 137.0 mg/dL (70-115) H 10/13/22 16:27 Ionized Calcium 1.2 mmol/L (1.1-1.4) 10/13/22 16: O2 Delivery Device Nc 10/13/22 16:27 O2 Liters/Min 2.0 % 10/13/22 16:27 FiO2 28.0 % 10/13/22 16:27 Secretarial Stenographer ID Cak 10/13/22 16:27 Sodium 136 mmol/L (136-145) 10/13/22 16:24 Potassium 4.2 mmol/L (3.5-5.1) 10/13/22 16:24 Chloride 94 mmol/L (98-107) L 10/13/22 16:24 Carbon Dioxide 33 mmol/L (22-29) H 10/13/22 16:24 Anion Gap 13.2 (5-19) 10/13/22 16:24 BUN 15 mg/dL (6-20) 10/13/22 16:24 Creatinine 0.5 mg/dL (0.7-1.2) L 10/13/22 16:24 GFR Calculation 176.7 mL/min (90-130) H 10/13/22 16:24 Glucose 139 mg/dL (65-115) H 10/13/22 16:24 Calculated Osmolality 285 mOsm/kg (285-295) 10/13/22 16:24 Calcium 8.8 mg/dL (8.5-10.5) 10/13/22 16:24 Total Bilirubin 0.8 mg/dL (0.15-1.2) 10/13/22 16:24 AST 61 U/L (0-40) H 10/13/22 16:24 ALT 82 U/L (0-41) H 10/13/22 16:24 Alkaline Phosphatase 118 U/L (40-130) 10/13/22 16:24 Troponin T Baseline 38 ng/L (0-15) H 10/13/22 16:24 Troponin T 120 Minute 42.76 ng/L (0-15) H 10/13/22 18:22 Delta Troponin T 4.76 ABS# (0-10) 10/13/22 18:22 NT-Pro-B Natriuret Pep 7760 pg/mL (0-125) H 10/13/22 16:24 Total Protein 6.4 g/dL (6.6-8.7) L 10/13/22 16:24 Albumin 3.1 g/dL (3.5-5.2) L 10/13/22 16:24 Globulin 3.3 g/dL (1.3-4.6) 10/13/22 16:24 Urine Color Yellow (Yellow) 10/13/22 16:33 Urine Appearance Clear (CLEAR) 10/13/22 16:33 Urine pH 8 (5-7) H 10/13/22 16:33 Ur Specific [place] 1.010 (1.005-1.030) 10/13/22 16:33 Urine Protein Neg (Negative) 10/13/22 16:33 Urine Glucose (UA) Norm (Normal) 10/13/22 16:33 Urine Ketones Negative (Negative) 10/13/22 16:33 Urine Blood Neg (Negative) 10/13/22 16:33 Urine Nitrate Negative (Negative) 10/13/22 16:33 Urine Bilirubin Neg (Negative) 10/13/22 16:33 Prot Sulfosalicylic Acd Negative (Negative) 10/13/22 16:33 Urine Urobilinogen Norm mg/dL (Negative) 10/13/22 16:33 Ur Leukocyte Esterase Negative (Negative) 10/13/22 16:33 Hepatitis A IgM Ab Non-reactive (Nonreactive) 10/13/22 16:24 Hep Bs Antigen Non-reactive (Nonreactive) 10/13/22 16:24 Hep B Core IgM Ab Non-reactive (Nonreactive) 10/13/22 16:24 Hepatitis C Antibody Reactive (Nonreactive) H 10/13/22 16:24 HIV 1&2 Ab & HIV 1 Ag Non-reactive (Non-Reactiv) 10/13/22 16:24 HIV 1&2 Antibody Non-reactive (Non-Reactiv) 10/13/22 16:24 Discharge Plan Discharge Patient Disposition: Admitted As Inpatient Admit Provider: Vargas Merritt Clinical Impression: Acute exacerbation of chronic obstructive airways disease, Congestive heart failure Condition: Stable Coding Level of Care Code ED Processing Lead for Eb Chawla
--- NOTE | 2022-10-13 16:18 | ECG_ITS ---
[facility] Test Date: 2022-10-13 Pat Name: Jeremy Mendez Department: Room: Gender: Male Field Ring Assembler: : 1975 Requested By: Migue Caldwell Order Number: [id number] Kp MD: Georgina Durham M.D. Measurements Intervals [place] Rate: 116 P: 80 OK: 134 QRS: 113 QRSD: 87 T: 87 QT: 312 QTc: 434 Interpretive Statements SINUS TACHYCARDIA POSSIBLE RIGHT VENTRICULAR HYPERTROPHY [SOME/ALL OF: PROMINENT R IN V1, LATE TRANSITION, RAD, PRISCILLA, SSS] Compared to ECG 09/24/2021 01:16:29 No significant changes Electronically Signed On 10-13-2022 16:58:49 CDT by Georgina Durham M.D. [id number]
[2022-10-13] MEDS: ipratropium-albuterol 3 mL Neb INHALATION ×2 (16:20→22:03)
[2022-10-13] MEDS: methylPREDNISolone sod succ 125 MG in water for injection-sterile 2 ML 24 MG IVP (16:27)
[2022-10-13] MEDS: FUROsemide 10 mg/mL SDV 4mL 40 MG IVP (16:38)
[2022-10-13 16:39] LABS: ABG PCO2 49.2 mmHg (35-45); ABG PH Result 7.48 (7.35-7.45); Arterial Blood Gas Hematocrit 41.4 % (42-52); Base Excess ABG 11.1 mmol/L (-2.0-2.0); Blood Gas Allen Test Pos; Blood Gas Operator Identificat CAK; Blood Gas Sample Site Radial, left; Blood Gas Sample Type Arterial; Carboxyhemoglobin 3.5 %THgb (0.4-20.1); HCO3 ABG 36.4 mmol/L (22-26); HGB O2 Sat 92.9 % (95-100); Ionized Calcium Level - ABG 1.2 mmol/L (1.1-1.4); Methemoglobin 0.2 % (0.4-1.5); Oxygen Device NC; Oxygen Saturation ABG 96.5; PO2 ABG 70.7 mmHg (80.0-100.0); Potassium Level - ABG 4.3 mmol/L (3.5-5.0); Total Hemoglobin 13.5 g/dL (14-18)
--- NOTE | 2022-10-13 16:41 | PC.NURSE ---
Additional Assessment: pt states he has been SOB x a couple days. Was seen here yesterday. No better today. Pt appears to have anasarca with puffiness noted to face, chest, and abdomen. Lung sounds are diminished with some wheezing noted. Pt c/o low back pain 11/08.
[2022-10-13 16:43] LABS: Basophils % 0.2 %; Eosinophils # 0.1 10^3/uL (0.0-0.8); Eosinophils % 0.7 %; Hematocrit 42.1 % (42.0-52.0); Hemoglobin 12.9 g/dL (11.7-16.6); Lymphocytes # 1.4 10^3/uL (0.8-4.8); Lymphocytes % 8.9 %; Mean Corpuscular HGB Conc 30.6 g/dL (30.0-36.0); Mean Corpuscular Hemoglobin 27.6 pg (28.0-34.0); Mean Platelet Volume 9.9 fL (7.4-10.4); Monocytes # 0.9 10^3/uL (0.2-0.9); Monocytes % 5.8 %; Neutrophils # 12.69 10^3/uL (1.8-7.7); Neutrophils % 83.5 %; Nucleated Red Blood Cells % 0 %; Platelet Count 278 10^3/cmm (130-400); Red Blood Count 4.68 10^6/uL (4.1-5.3); Red Cell Distribution Width 15.5 % (12.1-15.1); White Blood Count 15.2 10^3/uL (4.0-10.0)
[2022-10-13 16:46] LABS: Add Urine Microscopic? NO; Charge for UA Resulting for Rev
[2022-10-13 17:09] LABS: Troponin(5th) Baseline 38 ng/L (0-15)
[2022-10-13 17:16] LABS: Alanine Aminotransferase 82 U/L (0-41); Albumin Level 3.1 g/dL (3.5-5.2); Alkaline Phosphatase 118 U/L (40-130); Anion Gap 13.2 (5-19); Aspartate Amino Transferase 61 U/L (0-40); Blood Urea Nitrogen 15 mg/dL (6-20); Calcium 8.8 mg/dL (8.5-10.5); Carbon Dioxide 33 mmol/L (22-29); Chloride 94 mmol/L (98-107); Globulin 3.3 g/dL (1.3-4.6); Glomerular Filtration Rate 176.7 mL/min (90-130); Glucose 139 mg/dL (65-115); NT Pro B Type Natriuretic Pept 7760 pg/mL (0-125); Osmolality Calculated 285 mOsm/kg (285-295); Potassium 4.2 mmol/L (3.5-5.1); Sodium 136 mmol/L (136-145); Total Bilirubin 0.8 mg/dL (0.15-1.2); Total Protein 6.4 g/dL (6.6-8.7)
[2022-10-13 17:34] LABS: Bilirubin Urine Neg (Negative); Blood Urine Neg (Negative); Glucose Urine UA Norm (Normal); Ketones Urine Negative (Negative); Leukocyte Esterase Urine Negative (Negative); Nitrate Urine Negative (Negative); Protein Urine Neg (Negative); Sulfosalicylic Acid Urine Negative (Negative); Urine Appearance Clear (CLEAR); Urine Color Yellow (Yellow); Urobilinogen Urine Norm (Negative); pH Urine 8 (5-7)
[2022-10-13] MEDS: hyDRALAzine 20 mg/mL INJ 1 mL IVP (18:02)
[2022-10-13] MEDS: acetaminophen 500 mg Tablet 1000 MG PO (18:03)
[2022-10-13 18:28] LABS: D Dimer 1.54 ug/mIFEU (0-0.59)
--- NOTE | 2022-10-13 18:36 | ECG_ITS ---
[facility] Test Date: 2022-10-13 Pat Name: Jeremy Mendez Department: Room: Gender: Male Recruit Instructor: : 1975 Requested By: Migue Caldwell Order Number: [id number] Kp MD: Georgina Durham M.D. Measurements Intervals [place] Rate: 123 P: 81 AL: 126 QRS: 110 QRSD: 86 T: 88 QT: 306 QTc: 438 Interpretive Statements SINUS TACHYCARDIA WITH OCCASIONAL SUPRAVENTRICULAR PREMATURE COMPLEXES POSSIBLE RIGHT VENTRICULAR HYPERTROPHY [SOME/ALL OF: PROMINENT R IN V1, LATE TRANSITION, RAD, PRISCILLA, SSS] NONSPECIFIC T-WAVE ABNORMALITY Compared to ECG 10/13/2022 16:18:36 T-wave abnormality now present Electronically Signed On 10-13-2022 19:51:33 CDT by Georgina Durham M.D. [id number]
--- NOTE | 2022-10-13 18:43 | PM.HP ---
Providers/Chief Complaint Admitting Physician: Vargas Merritt Primary Care Provider: Bruno Lucas MD Chief Complaint: SOB History of Present Illness 47-year-old gentleman with history of CHF, COPD, chronically on 2 L nasal cannula oxygen, current smoker, anxiety disorder, other medical problems, was assessed in ER on 10/12 presenting with bilateral lower extremity edema, aching sensation, found to be in decompensated congestive heart failure received a dose of Lasix with reported diuresis in ER, discharged with any milligram oral Lasix prescription, return to ER again today with complaint of shortness of breath, persistent lower extremity edema, NT-proBNP is noted worse at 7760, orthopnea, request is made for additional IV diuresis, duration of the hospital. Blood pressure noted elevated as high as 171/112, given a dose of hydralazine. Baseline troponin 38. EKG with sinus tachycardia. Chest x-ray nonacute. He was also given a dose of Solu-Medrol, breathing treatment for COPD. She denies being aware of known history of CHF. Lower extreme edema is doing better today compared to yesterday. Has not seen a bilingual elementary school teacher. He is having pleuritic chest pain. Reports history of PE several years back. States could not afford to take Eliquis at the time. She has been trying to quit smoking. He additionally has had opioid use disorder states injecting up to a few 100 mg of morphine a day. Last use this morning. He states that he purchases his own needles. Has tried getting into methadone clinic, but could not due to not having a certificate. Review of Systems Const: Denies: fever(s), chills, body aches or malaise Eyes: Denies: change in vision ENMT: Denies: throat pain or ear or mastoid pain Card: Denies: chest pain, edema, pre-syncope or dyspnea on exertion Resp: Reports: dyspnea, productive cough and pain on inspiration; Denies: hemoptysis GI: Denies: abdominal pain, nausea, vomiting, diarrhea, constipation, hematochezia or melena : Denies: flank pain, difficulty urinating, urinary frequency or hematuria Musc: Denies: back pain, joint swelling or joint redness Skin/Breast: Denies: rash or new lesions Neuro: Denies: headache(s) Psych: Reports: anxiety Medications/Allergies Home Medications Medication Instructions Recorded Confirmed Last Taken Type Oxygen and supplies #1 ea 01/02/22 10/13/22 Unknown Rx bupropion HCl 150 mg tablet,12 hr 150 mg PO QAM anxiety & smoking 01/02/22 10/13/22 Unknown Rx sustained-release #30 tabs albuterol sulfate 90 mcg/actuation 2 inh inhalation Q4H PRN shortness 02/26/22 10/13/22 Unknown Rx aerosol inhaler of breath or wheezing #18 grams hydroxyzine pamoate 50 mg capsule 50 mg PO Q8H PRN Anxiety 02/26/22 10/13/22 Unknown History ipratropium 20 mcg-albuterol 100 2 puff inhalation Q8H PRN 02/26/22 10/13/22 Unknown History mcg/actuation mist for inhalation Shortness Of Breath nebulizer & suppies #1 ea 02/27/22 10/13/22 Unknown Rx sertraline 50 mg tablet See Rx Instructions .Route 06/27/22 10/13/22 Unknown Rx .COMPLEX #30 tabs budesonide-formoterol HFA 160 2 puff inhalation BID #10.2 grams 07/01/22 10/13/22 Unknown Rx mcg-4.5 mcg/actuation aerosol inhaler (Symbicort) montelukast 10 mg tablet 10 mg PO DAILY #90 tabs 07/01/22 10/13/22 Unknown Rx (Singulair) tiotropium bromide 18 mcg capsule 1 cap inhalation DAILY #30 07/01/22 10/13/22 Unknown Rx with inhalation device (Spiriva inhalations with HandiHaler) Allergies Allergy/AdvReac Type Severity Reaction Status Date / Time No Known Allergies Allergy Verified 10/13/22 15:51 PFSH Acute PFSH: Medical History (Updated 10/13/22 @ 19:21 by Vargas Merritt MD) Anxiety disorder due to general medical condition with panic attack Cigarette smoker motivated to quit Cigarette smoker two packs a day or less COPD (chronic obstructive pulmonary disease) case management patient COPD exacerbation COPD with hypoxia Decompensated COPD with exacerbation (chronic obstructive pulmonary disease) Encounter for smoking cessation counseling Lipoma of chest wall 03/06/2021 3.5 x 6 cm right lateral chest wall probable lipoma Oxygen dependent Respiratory distress, acute Shortness of breath at rest Family History Other COPD (chronic obstructive pulmonary disease) Cancer Social History (Updated 10/13/22 @ 19:07 by Vargas Merritt MD) Smoking and tobacco status: current every day smoker cigarettes Packs smoked per day: 1 Second hand smoke exposure: Yes Alcohol intake: current Alcohol intake frequency: holidays/special occasions only Alcohol type: hard liquor Substance/Drug Use: current Other substance/drug use details: IV morphine Lives independently: Yes Marital status: Legally Current occupational status: disabled Current gender identity: Male Vitals/I&O/Wt Last Vital Signs Temp 98.1 F 10/13/22 15:51 Pulse 124 H 10/13/22 18:35 Resp 21 H 10/13/22 17:20 BP 153/96 10/13/22 18:35 Pulse Ox 95 10/13/22 18:35 O2 Del Method Nasal Cannula 10/13/22 18:35 O2 Flow Rate 2 10/13/22 18:35 10/13/22 10/13/22 10/13/22 06:59 14:59 22:59 Intake Total 2 / 2 Output Total 1000 / 1000 Balance -998 / -998 Weight last 48 hrs Weight 70.307 kg Physical Exam Const: COMMON NORMALS: patient oriented x3 and alert GENERAL APPEARANCE: cooperative and disheveled ORIENTATION/CONSCIOUSNESS: Yes awake HENMT: COMMON NORMALS: oropharynx normal Neck/C-Spine: COMMON NORMALS: no JVD Resp: COMMON NORMALS: normal respiratory effort and clear to auscultation bilaterally AUSCULTATION: diminished lung sounds bilateral Cardio: COMMON NORMALS: no JVD, regular rhythm, S1 normal heart sound present, S2 normal heart sound present and No murmurs present (Cardio) RHYTHM: regular rhythm HEART SOUNDS: S1 normal heart sound present and S2 normal heart sound present GI: COMMON NORMALS: Normal to inspection, nondistended, normoactive bowel sounds present, Soft to palpation and non-tender PALPATION: Yes Soft to palpation Extremity: COMMON NORMALS: no joint enlargement GENERAL: Yes edema (Trace) OTHER: Tattoos Neuro: COMMON NORMALS: patient oriented x3 and moves all extremities SENSORIUM/ORIENTATION: Yes alert Psych: OTHER: Anxious, tremulous. Skin: COMMON NORMALS: no rashes or lesions noted GENERAL SKIN EXAM: no rashes or lesions noted OTHER: No obvious splinter hemorrhages. Splotches of old paint on the fingernails. Data 10/13/22 16:24 10/13/22 16:24 A&P Assessment and plan (1) Decompensated COPD with exacerbation (chronic obstructive pulmonary disease): Severe dyspnea, productive cough, diminished air entry. Received Solu-Medrol, for now continue with budesonide, ceftriaxone, breathing treatments. Sputum culture.Collect respiratory viral panel, collect urine bacterial antigens. Noted leukocytosis 15.2. Predominantly neutrophilia 12.69. No obvious pneumonia on chest x-ray. (2) Symptom of congestive heart failure: Recent visits to ER with symptoms of congestive heart failure, possible CHF, he denies known history, lower extremity edema, orthopnea, dyspnea, edema did improve with receiving Lasix yesterday, received additional dose of Lasix in ER. Troponin with mild elevation. Complete series. He is anxious discomfort but it is pleuritic. I do not see an echocardiogram on record. Assess TTE. Continue Lasix 20 mg IV daily. Reassess chemistries. Monitor GALE. Weights. Noted mild transaminitis 61, 82 AST and ALT respectively. Possibly some congestive hepatopathy. Also concern with IV opioid use disorder, assess hepatitis panel. Sinus tachycardia, abnormal D-dimer, assess lower extremity duplex for DVT. (3) Sinus tachycardia: D-dimer obtained, abnormal. He reports history of PE in the past, could not afford Eliquis. Requested CT angiogram chest for possible PE. Consideration of anticoagulation, although CT will be useful for assessment of possible septic embolization, although otherwise does not report history of fever, may elevate his risk of bleeding. (4) Leukocytosis: WBC 15.2. predominantly neutrophilic. Rocephin for COPD exacerbation as above. Possibly stress related. However, will collect blood cultures as discussed with him given opioid use disorder with injection. CXR without pneumonia. UA not suggestive of UTI. Denies any other neurologic commands, dry, GI or other symptoms that may suggest acute infection. (5) Opioid use disorder, severe, dependence: Reports injection is on morphine after several 100 mg in a day. Last was this morning. Has previously had history of withdrawal. Tried to get into methadone clinic but could not due to lack of certificate. At risk of withdrawal. For now we will request monitoring COWS scale, morphine if starting to go into withdrawal, however, in case he goes into withdrawal consideration of methadone for tomorrow instead. Due to high risk of withdrawal, compromised respiratory status, initial admission to intensive care unit. Additional supportive measures requested. Case management consultation to assist with establishing with methadone clinic. (6) Cigarette smoker two packs a day or less: Discussed smoking cessation for 5 minutes, he states has been trying to quit, has been cutting down. he is agreeable with nicotine patches, lozenges while here. Continue to encourage cessation. Discussed risk of severe fire hazard smoking anywhere near oxygen. (7) Goals of care, counseling/discussion: States does not have any family he can turn to. Lives by himself. In case could not make his own decisions considers perhaps we could turn to Isamar Wilde who is a good friend to make decisions on his behalf if he could not make his own. Plan ER documentation reviewed, discussed with ER physician. Attestations Medical Necessity Statement*: Admission of over 2 midnights anticipated for assessment and management of COPD exacerbation, possible decompensated CHF. High risk of opioid withdrawal. Diagnoses Decompensated COPD with exacerbation (chronic obstructive pulmonary disease) J44.1 Symptom of congestive heart failure R09.89 Sinus tachycardia R00.0 Leukocytosis D72.829 Opioid use disorder, severe, dependence F11.20 Cigarette smoker two packs a day or less F17.210 Goals of care, counseling/discussion Z71.89
[2022-10-13 18:58] LABS: Troponin 5 2HR 42.76 ng/L (0-15)
[2022-10-13 19:01] LABS: Troponin 5 2HR Delta 4.76 ABS# (0-10)
--- NOTE | 2022-10-13 20:00 | USCV_ITS ---
Jeremy Mendez Age: 47 Gender: M : 1975 Exam Date: 10/13/2022 20:57 Ordering Phys: Vargas Merritt MD Technologist: [place] [facility] [place]: edema PROCEDURES: Venous duplex imaging was performed in bilateral lower extremities. Bilaterally, the common femoral, superficial femoral, profunda femoral, popliteal, posterior tibial, greater saphenous veins, and the peroneal trunk were identified and interrogated in the standard fashion. These FINDINGS: Normal 2-D Doppler and augmentation and compressibility throughout the lower extremity venous structures. Additional imaging through the proximal calf veins also reveals no thrombus. Limited evaluation of the greater saphenous vein is patent with no thrombus. CONCLUSIONS No DVT bilateral lower extremities. Dr. Bronwyn Holguin DO (Electronically Signed) Final Date: 14 October 2022 07:59 S
[2022-10-13] MEDS: enoxaparin 40 mg/0.4 mL Syringe SUBCUT (21:02)
[2022-10-13] MEDS: methocarbamol 750 mg Tablet PO (21:03)
[2022-10-13] MEDS: cloNIDine 0.1 mg Tablet PO (21:03)
[2022-10-13] MEDS: nicotine 21 mg Patch 1 PATCH TRANSDERMA (21:03)
[2022-10-13] MEDS: pantoprazole DR 40 mg Tablet PO (21:03)
[2022-10-13] MEDS: loperamide 2 mg Capsule 4 MG PO (21:03)
[2022-10-13 21:09] LABS: HIV 1 & 2 Antibody Non-Reactive (Non-Reactiv); HIV 1 & 2 Antigen Non-Reactive (Non-Reactiv)
[2022-10-13 21:14] LABS: Hepatitis A Antibody IgM Non-Reactive (Nonreactive); Hepatitis B Core IgM Non-Reactive (Nonreactive); Hepatitis B Surface Antigen Non-Reactive (Nonreactive); Hepatitis C Virus Antibody Reactive (Nonreactive)
[2022-10-13] MEDS: budesonide 0.5 mg/2 mL Neb INHALATION (22:03)
--- NOTE | 2022-10-13 22:04 | ECG_ITS ---
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 Measurements Intervals [place] Rate: 118 P: 84 ID: [id number] QRS: 112 QRSD: 87 T: 209 QT: 348 QTc: 489 Interpretive Statements SINUS TACHYCARDIA RIGHT ATRIAL ENLARGEMENT [0.3mV P-WAVE] LEFT POSTERIOR FASCICULAR BLOCK [QRS AXIS > 109, INFERIOR Q] MODERATE T-WAVE ABNORMALITY, CONSIDER ANTEROLATERAL ISCHEMIA [-0.1+ mV T-WAVE IN V3-V6] Compared to ECG 10/13/2022 18:36:03 Left posterior fascicular block now present Possible ischemia now present T-wave abnormality still present Electronically Signed On 10-14-2022 14:46:09 CDT by Lukas Rodrigez M.D. [id number]
[2022-10-13] MEDS: dicyclomine 20 mg Tablet PO (23:21)
[2022-10-13 23:52] LABS: Troponin 5 6HR 31.92 ng/L (0-15)
[2022-10-14] VITALS (63 sets, daily range): BP systolic 128–171; BP diastolic 69–119; PULSE 96–117; RESP 16–22; TEMP 36.6–36.9; O2SAT 88–97; BMI 22.3
[2022-10-14 00:03] LABS: Troponin 5 6HR Delta -6.08 ng/L (0-12)
[2022-10-14 00:19] LABS: Adenovirus Not Detected (NOT DETECT); Chlamydia Pneumoniae Not Detected (NOT DETECT); Coronavirus 229E,HKU1,NL63,OC4 Not Detected (NOT DETECT); Human Metapneumovirus Not Detected (NOT DETECT); Human Rhinovirus/Enterovirus Not Detected (NOT DETECT); Influenza A Not Detected (NOT DETECT); Influenza A H1 Not Detected (NOT DETECT); Influenza A H1-2009 Not Detected (NOT DETECT); Influenza A H3 Not Detected (NOT DETECT); Influenza B Not Detected (NOT DETECT); Mycoplasma Pneumoniae Not Detected (NOT DETECT); Parainfluenza Virus Type 1 Not Detected (NOT DETECT); Parainfluenza Virus Type 2 Not Detected (NOT DETECT); Parainfluenza Virus Type 3 Not Detected (NOT DETECT); Parainfluenza Virus Type 4 Not Detected (NOT DETECT); Respiratory Syncytial Virus A Not Detected (NOT DETECT); Respiratory Syncytial Virus B Not Detected (NOT DETECT); SARS-COV-2 Not Detected (NOT DETECT)
[2022-10-14 04:45] LABS: Basophils % 0.1 %; Hematocrit 45.6 % (42.0-52.0); Hemoglobin 14.3 g/dL (11.7-16.6); Lymphocytes % 7.1 %; Mean Corpuscular HGB Conc 31.4 g/dL (30.0-36.0); Mean Corpuscular Hemoglobin 27.6 pg (28.0-34.0); Monocytes # 0.2 10^3/uL (0.2-0.9); Monocytes % 1.7 %; Neutrophils # 12.54 10^3/uL (1.8-7.7); Neutrophils % 90.5 %; Nucleated Red Blood Cells % 0 %; Platelet Count 344 10^3/cmm (130-400); Red Blood Count 5.18 10^6/uL (4.1-5.3); Red Cell Distribution Width 15.1 % (12.1-15.1); White Blood Count 13.9 10^3/uL (4.0-10.0)
[2022-10-14 05:16] LABS: Alanine Aminotransferase 75 U/L (0-41); Albumin Level 3.3 g/dL (3.5-5.2); Alkaline Phosphatase 113 U/L (40-130); Aspartate Amino Transferase 51 U/L (0-40); Blood Urea Nitrogen 17 mg/dL (6-20); Calcium 9.1 mg/dL (8.5-10.5); Carbon Dioxide 34 mmol/L (22-29); Chloride 93 mmol/L (98-107); Globulin 3.5 g/dL (1.3-4.6); Glomerular Filtration Rate 176.7 mL/min (90-130); Glucose 78 mg/dL (65-115); Magnesium 1.6 mg/dL (1.7-2.3); Osmolality Calculated 284 mOsm/kg (285-295); Sodium 137 mmol/L (136-145); Total Bilirubin 0.8 mg/dL (0.15-1.2); Total Protein 6.8 g/dL (6.6-8.7)
[2022-10-14 05:22] LABS: Anion Gap 13.9 (5-19); Potassium 3.9 mmol/L (3.5-5.1)
--- NOTE | 2022-10-14 07:04 | PC.NURSE ---
Patient refused to wear hospital telemetry. Physician notified
[2022-10-14] MEDS: budesonide 0.5 mg/2 mL Neb INHALATION (08:08)
[2022-10-14] MEDS: ipratropium-albuterol 3 mL Neb INHALATION ×2 (08:08→13:18)
[2022-10-14] MEDS: dicyclomine 20 mg Tablet PO ×2 (09:19→14:17)
[2022-10-14] MEDS: montelukast sodium 10 mg Tablet PO (09:19)
[2022-10-14] MEDS: pantoprazole DR 40 mg Tablet PO (09:19)
[2022-10-14] MEDS: cloNIDine 0.1 mg Tablet PO ×2 (09:19→14:14)
[2022-10-14] MEDS: methocarbamol 750 mg Tablet PO ×2 (09:19→14:14)
[2022-10-14] MEDS: FUROsemide 10 mg/mL SDV 2mL 20 MG IVP (09:29)
[2022-10-14] MEDS: tuberculin 5 unit/0.1 mL (per dose) INTRADERMA (09:29)
--- NOTE | 2022-10-14 09:56 | PC.NURSE ---
Tuberculin Skin test to RIGHT forearm. Lot number and expiration per pharmacy. Infection controlled called and notified of testing to due follow up.
--- NOTE | 2022-10-14 11:36 | PC.NURSE ---
Addendum entered by Jose Griffin RN 10/14/22 12:01: Report called to Jordan Medina, not Linda. Original Note: Report called to NANCY Mckeon. Patient and belongings taken to room 250-2. No further questions.
--- NOTE | 2022-10-14 16:45 | PM.DCS ---
Discharge Providers Date of Admission: 10/13/22 19:37 Date of Discharge: October 14, 2022 Attending Provider at Admission: Vargas Merritt Attending Provider at Discharge: Vargas Merritt Primary Care Provider: Bruno Lucas MD Diagnoses at Discharge Discharge Diagnosis (1) Decompensated COPD with exacerbation (chronic obstructive pulmonary disease): Status: Acute (2) Symptom of congestive heart failure: Status: Acute (3) Sinus tachycardia: Status: Acute (4) Leukocytosis: Status: Acute (5) Opioid use disorder, severe, dependence: Status: Acute (6) Cigarette smoker two packs a day or less: Status: Acute (7) Goals of care, counseling/discussion: Status: Acute Reason for Visit Reason for Visit: SOB Brief History: 47-year-old gentleman with history of CHF, COPD, chronically on 2 L nasal cannula oxygen, current smoker, anxiety disorder, other medical problems, was assessed in ER on 10/12 presenting with bilateral lower extremity edema, aching sensation, found to be in decompensated congestive heart failure received a dose of Lasix with reported diuresis in ER, discharged with any milligram oral Lasix prescription, return to ER again today with complaint of shortness of breath, persistent lower extremity edema, NT-proBNP is noted worse at 7760, orthopnea, request is made for additional IV diuresis, duration of the hospital.? Blood pressure noted elevated as high as 171/112, given a dose of hydralazine.? Baseline troponin 38.? EKG with sinus tachycardia. Chest x-ray nonacute.? He was also given a dose of Solu-Medrol, breathing treatment for COPD. She denies being aware of known history of CHF.? Lower extreme edema is doing better today compared to yesterday.? Has not seen a home visits nurse. He is having pleuritic chest pain.? Reports history of PE several years back.? States could not afford to take Eliquis at the time. She has been trying to quit smoking. He additionally has had opioid use disorder states injecting up to a few 100 mg of morphine a day. Last use this morning. He states that he purchases his own needles.? Has tried getting into methadone clinic, but could not due to not having a certificate. Hospital Course Hospital Course He was assessed by CTA without finding of PE is or other emboli, but with noted bilateral numerous calcified nodules, no focal pneumonia. Venous duplex negative for DVT. Echocardiogram obtained but not read yet. Pending read, please follow-up. Started on breathing treatments, inhaled budesonide, held off on systemic steroids with reported IVDU. Blood cultures obtained. With calcified nodules, respiratory symptoms, requested ultrasound AFB sputum to assess for possible TB. PPD requested to assess for possible latent TB. Respiratory viral panel obtained and was negative. HIV negative. Noted positive hepatitis C antibody. Discussed results with him, he was not aware previously of hepatitis C infection. Discussed with him to follow-up with prior provider for additional work-up and for referral for treatment. Troponin series with mild elevation, without peak, remained chest pain-free. No suggestion of acute MS. Continued on daily 20 mg IV Lasix. Noted hypomagnesemia, today 1.6. Due to elevated risk of withdrawal and initial concerning presentation initially monitored in ICU, but did well and was able to transfer upstairs to continue treatment. Today still diminished air entry, oxygenation without worsening. however, stated could no longer stay in the hospital, leaving AMA. Understands risk of decompensation, respiratory failure, risk of infection, risk of other potentially disabling or life-threatening complications. Understands that due to his hasty departure discharge arrangements cannot meet the usual standards. Understands can stay and resume care or return to ER in case of worsening, otherwise encouraged to follow-up with PCP soonest available appointment. Discussed with him to follow-up with health department to get PPD read on Wednesday as well as to complete AFB collection additional 2 samples. Follow-up with PCP for reassessment of nodules to exclude growth, antineoplastic lesions, other causes. Discussed with case management earlier todaywho contacted methadone clinic locally with regards to require documentation and discussed with him, and he was given information when he needs to establish including his drivers license, Social Security card. Encouraged him to pursue and encouraged cessation of opioid use, discussed risks of continued use. Discussed risk of infection spread. Encourage smoking cessation. Appointment is made with primary provider for Wednesday. Please follow-up his condition, please follow-up results of echocardiogram, blood culture. Please follow-up for completion of PPD, AFB. Continue to work with him to establish with methadone clinic, cessation of IV opioid use, hepatitis C and other underlying medical problems. Physical Exam Narrative: Sitting at edge of bed, getting dressed and putting on his shoes as we are speaking. Const: COMMON NORMALS: patient oriented x3 and alert GENERAL APPEARANCE: cooperative ORIENTATION/CONSCIOUSNESS: Yes awake OTHER: Fairly awake and alert, able to verbalize risks No bleeding prematurely, states he cannot stay. HENMT: COMMON NORMALS: oropharynx normal Neck/C-Spine: COMMON NORMALS: no JVD Resp: COMMON NORMALS: normal respiratory effort and clear to auscultation bilaterally AUSCULTATION: clear to auscultation bilaterally Cardio: COMMON NORMALS: no JVD, regular rhythm, S1 normal heart sound present, S2 normal heart sound present and No murmurs present (Cardio) RHYTHM: regular rhythm HEART SOUNDS: S1 normal heart sound present and S2 normal heart sound present GI: COMMON NORMALS: Normal to inspection, nondistended, normoactive bowel sounds present, Soft to palpation and non-tender PALPATION: Yes Soft to palpation Extremity: COMMON NORMALS: no joint enlargement and no pedal edema NARRATIVE EXTREMITY EXAM: PPD R forearm. Neuro: COMMON NORMALS: patient oriented x3 and moves all extremities SENSORIUM/ORIENTATION: Yes alert Skin: COMMON NORMALS: no rashes or lesions noted GENERAL SKIN EXAM: no rashes or lesions noted Discharge Data Studies Completed and Pending Completed Studies During Hospitalization Category Date Time Status CTA chest [CT angio chest PE protcl [id number]] Stat Cat Scan 10/13/22 18:32 Completed XR chest 1V portable [id number] Stat Exams 10/13/22 16:04 [place] [id number] Routine Ultrasound 10/13/22 20:00 Completed Pending at discharge Category Date Time Status AFB [Mycobacteria, Culture w/Fluor] Routine Lab 10/14/22 08:41 Uncollected AFB [Mycobacteria, Culture w/Fluor] Routine Lab 10/14/22 21:00 Uncollected AFB [Mycobacteria, Culture w/Fluor] Routine Lab 10/15/22 06:00 Uncollected Blood Culture Stat Lab 10/13/22 19:14 Results Complete Blood Count w/Auto AM LABS Lab 10/15/22 04:00 Ordered Complete Blood Count w/Auto AM LABS Lab 10/16/22 04:00 Ordered Comprehensive Metabolic Panel AM LABS Lab 10/15/22 04:00 Ordered Comprehensive Metabolic Panel AM LABS Lab 10/16/22 04:00 Ordered Hepatitis C RNA Viral Load Qnt Routine Lab 10/13/22 21:47 Received Sputum Culture and Gram Stain Routine Lab 10/13/22 20:00 Uncollected CV. echo complete* [id number] Routine Ultrasound 10/14/22 20:00 Taken Radiology Impressions Chest X-Ray 10/13/22 16:04 IMPRESSION: Nonacute findings. Laboratory Results WBC 13.9 10^3/uL (4.0-10.0) H 10/14/22 03:51 RBC 5.18 10^6/uL (4.1-5.3) 10/14/22 03:51 Hgb 14.3 g/dL (11.7-16.6) 10/14/22 03:51 Hct 45.6 % (42.0-52.0) 10/14/22 03:51 MCV 88.0 fl (80-94) 10/14/22 03:51 MCH 27.6 pg (28.0-34.0) L 10/14/22 03:51 MCHC 31.4 g/dL (30.0-36.0) 10/14/22 03:51 RDW 15.1 % (12.1-15.1) 10/14/22 03:51 Plt Count 344 10^3/cmm (130-400) 10/14/22 03:51 MPV 10.0 fL (7.4-10.4) 10/14/22 03:51 Neut % (Auto) 90.5 % 10/14/22 03:51 Lymph % (Auto) 7.1 % 10/14/22 03:51 [place] % (Auto) 1.7 % 10/14/22 03:51 Eos % (Auto) 0.0 % 10/14/22 03:51 Baso % (Auto) 0.1 % 10/14/22 03:51 Neut # (Auto) 12.54 10^3/uL (1.8-7.7) H 10/14/22 03:51 Lymph # (Auto) 1.0 10^3/uL (0.8-4.8) 10/14/22 03:51 [place] # (Auto) 0.2 10^3/uL (0.2-0.9) 10/14/22 03:51 Eos # (Auto) 0.0 10^3/uL (0.0-0.8) 10/14/22 03:51 Baso # (Auto) 0.0 10^3/uL (0.0-0.1) 10/14/22 03:51 Nucleated RBC % (auto) 0 % 10/14/22 03:51 Nucleated RBCs # 0.0 /100WBC 10/14/22 03:51 D-Dimer 1.54 ug/mIFEU (0-0.59) H 10/13/22 16:24 Specimen Type Arterial 10/13/22 16:27 Sample Site Radial, left 10/13/22 16:27 ABG pH 7.48 (7.35-7.45) H 10/13/22 16:27 ABG pCO2 49.2 mmHg (35-45) H 10/13/22 16:27 ABG pO2 70.7 mmHg (80.0-100.0) L 10/13/22 16:27 ABG HCO3 36.4 mmol/L (22-26) H 10/13/22 16:27 ABG O2 Saturation 96.5 10/13/22 16:27 ABG Base Excess 11.1 mmol/L (-2.0-2.0) H 10/13/22 16:27 Gurpreet Test Pos 10/13/22 16:27 A-a O2 Gradient 9.0 mmHg (5-10) 10/13/22 16:27 Hematocrit 41.4 % (42-52) L 10/13/22 16:27 Hgb O2 Saturation 92.9 % (95-100) L 10/13/22 16:27 Carboxyhemoglobin 3.5 %THgb (0.4-20.1) 10/13/22 16:27 Methemoglobin 0.2 % (0.4-1.5) L 10/13/22 16:27 Total Hemoglobin 13.5 g/dL (14-18) L 10/13/22 16:27 Sodium 136.0 mmol/L (131-143) 10/13/22 16:27 Potassium 4.3 mmol/L (3.5-5.0) 10/13/22 16:27 Glucose 137.0 mg/dL (70-115) H 10/13/22 16:27 Ionized Calcium 1.2 mmol/L (1.1-1.4) 10/13/22 16:27 O2 Delivery Device Nc 10/13/22 16:27 O2 Liters/Min 2.0 % 10/13/22 16:27 FiO2 28.0 % 10/13/22 16:27 Industrial Controls Technician ID Cak 10/13/22 16:27 Sodium 137 mmol/L (136-145) 10/14/22 03:51 Potassium 3.9 mmol/L (3.5-5.1) 10/14/22 03:51 Chloride 93 mmol/L (98-107) L 10/14/22 03:51 Carbon Dioxide 34 mmol/L (22-29) H 10/14/22 03:51 Anion Gap 13.9 (5-19) 10/14/22 03:51 BUN 17 mg/dL (6-20) 10/14/22 03:51 Creatinine 0.5 mg/dL (0.7-1.2) L 10/14/22 03:51 GFR Calculation 176.7 mL/min (90-130) H 10/14/22 03:51 Glucose 78 mg/dL (65-115) 10/14/22 03:51 Calculated Osmolality 284 mOsm/kg (285-295) L 10/14/22 03:51 Calcium 9.1 mg/dL (8.5-10.5) 10/14/22 03:51 Magnesium 1.6 mg/dL (1.7-2.3) L 10/14/22 03:51 Total Bilirubin 0.8 mg/dL (0.15-1.2) 10/14/22 03:51 AST 51 U/L (0-40) H 10/14/22 03:51 ALT 75 U/L (0-41) H 10/14/22 03:51 Alkaline Phosphatase 113 U/L (40-130) 10/14/22 03:51 Troponin T Baseline 38 ng/L (0-15) H 10/13/22 16:24 Troponin T 120 Minute 42.76 ng/L (0-15) H 10/13/22 18:22 Delta Troponin T 4.76 ABS# (0-10) 10/13/22 18:22 Troponin T Hi Sens 6Hr 31.92 ng/L (0-15) H 10/13/22 22:50 Troponin T Hi Sens 6Hr Delta -6.08 ng/L (0-12) L 10/13/22 22:50 NT-Pro-B Natriuret Pep 7760 pg/mL (0-125) H 10/13/22 16:24 Total Protein 6.8 g/dL (6.6-8.7) 10/14/22 03:51 Albumin 3.3 g/dL (3.5-5.2) L 10/14/22 03:51 Globulin 3.5 g/dL (1.3-4.6) 10/14/22 03:51 Urine Color Yellow (Yellow) 10/13/22 16:33 Urine Appearance Clear (CLEAR) 10/13/22 16:33 Urine pH 8 (5-7) H 10/13/22 16:33 Ur Specific [place] 1.010 (1.005-1.030) 10/13/22 16:33 Urine Protein Neg (Negative) 10/13/22 16:33 Urine Glucose (UA) Norm (Normal) 10/13/22 16:33 Urine Ketones Negative (Negative) 10/13/22 16:33 Urine Blood Neg (Negative) 10/13/22 16:33 Urine Nitrate Negative (Negative) 10/13/22 16:33 Urine Bilirubin Neg (Negative) 10/13/22 16:33 Prot Sulfosalicylic Acd Negative (Negative) 10/13/22 16:33 Urine Urobilinogen Norm mg/dL (Negative) 10/13/22 16:33 Ur Leukocyte Esterase Negative (Negative) 10/13/22 16:33 Nasal Influ A H1 2008 PCR Not detected (NOT DETECT) 10/13/22 22:19 Adenovirus (PCR) Not detected (NOT DETECT) 10/13/22 22:19 C. pneumoniae DNA (PCR) Not detected (NOT DETECT) 10/13/22 22:19 Coronavirus 229E (PCR) Not detected (NOT DETECT) 10/13/22 22:19 Hepatitis A IgM Ab Non-reactive (Nonreactive) 10/13/22 16:24 Hep Bs Antigen Non-reactive (Nonreactive) 10/13/22 16:24 Hep B Core IgM Ab Non-reactive (Nonreactive) 10/13/22 16:24 Hepatitis C Antibody Reactive (Nonreactive) H 10/13/22 16:24 HIV 1&2 Ab & HIV 1 Ag Non-reactive (Non-Reactiv) 10/13/22 16:24 HIV 1&2 Antibody Non-reactive (Non-Reactiv) 10/13/22 16:24 Human Metapneumovir PCR Not detected (NOT DETECT) 10/13/22 22:19 Influenza A (H1) PCR Not detected (NOT DETECT) 10/13/22 22:19 Influenza A (H3) PCR Not detected (NOT DETECT) 10/13/22 22:19 Influenza Type A (PCR) Not detected (NOT DETECT) 10/13/22 22:19 Influenza Type B (PCR) Not detected (NOT DETECT) 10/13/22 22:19 M. pneumoniae (PCR) Not detected (NOT DETECT) 10/13/22 22:19 Parainfluenza 1 (PCR) Not detected (NOT DETECT) 10/13/22 22:19 Parainfluenza 2 (PCR) Not detected (NOT DETECT) 10/13/22 22:19 Parainfluenza 3 (PCR) Not detected (NOT DETECT) 10/13/22 22:19 Parainfluenza 4 (PCR) Not detected (NOT DETECT) 10/13/22 22:19 RSV Type A (PCR) Not detected (NOT DETECT) 10/13/22 22:19 RSV Type B (PCR) Not detected (NOT DETECT) 10/13/22 22:19 Entero/Rhino (PCR) Not detected (NOT DETECT) 10/13/22 22:19 SARS-CoV-2 (PCR) Not detected (NOT DETECT) 10/13/22 22:19 Vitals Last Vital Signs Temp 98.5 F 10/14/22 15:07 Pulse 96 10/14/22 15:07 Resp 16 10/14/22 15:07 BP 128/77 10/14/22 15:07 Pulse Ox 91 10/14/22 15:07 O2 Del Method Nasal Cannula 10/14/22 15:07 O2 Flow Rate 2 10/14/22 13:20 Discharge Plan Discharge Patient Disposition: Left Against Medical Advice Condition: Stable Prescriptions: New cefdinir 300 mg capsule 300 mg PO BID 5 Days Qty: 10 0RF Continued bupropion HCl 150 mg tablet sustained-release 12 hr 150 mg PO QAM Qty: 30 3RF (DME) Oxygen and supplies See Rx Instructions .Route .MEDSUPPLY Qty: 1 11RF Rx Instructions: As directed, 2 liters, continuous. (DME) nebulizer & suppies See Rx Instructions .Route .MEDSUPPLY Qty: 1 0RF Rx Instructions: As directed Home equipment sertraline 50 mg tablet See Rx Instructions .ROUTE .COMPLEX Qty: 30 5RF Dose Instruction: TAKE 1 TABLET BY MOUTH ONCE DAILY FOR ANXIETY Rx Instructions: TAKE 1 TABLET BY MOUTH ONCE DAILY FOR ANXIETY Spiriva with HandiHaler 18 mcg capsule, w/inhalation device 1 cap inhalation DAILY Qty: 30 5RF Rx Instructions: puncture 1 cap using device; one dose = 2 inhalations 340B meds budesonide-formoterol [Symbicort] 160-4.5 mcg/actuation HFA aerosol inhaler 2 puff inhalation BID Qty: 10.2 4RF montelukast [Singulair] 10 mg tablet 10 mg PO DAILY Qty: 90 3RF hydroxyzine pamoate 50 mg capsule 50 mg PO Q8H PRN (Reason: Anxiety) ipratropium-albuterol 20-100 mcg/actuation mist 2 puff inhalation Q8H PRN (Reason: Shortness Of Breath) albuterol sulfate 90 mcg/actuation HFA aerosol inhaler 2 inh INHALATION Q4H PRN (Reason: shortness of breath or wheezing) Qty: 18 0RF Referrals: Bruno Lucas MD [Primary Care Provider] - 10/16/22 11:15 am Patient Instructions: How to Stop Smoking (GEN), Cigarette Smoking and Your Health (GEN), Hepatitis C (GEN), COPD (Chronic Obstructive Pulmonary Disease) (GEN), Hypomagnesemia (GEN), Against Medical Advice (DC), Pulmonary Nodules (GEN), Opioid Use Disorder (GEN), Opioid Safety Activity Restrictions/Additional Instructions: Please note that you are leaving the hospital prematurely before diagnosis and treatment of your conditions could be completed. Leaving on short notice means that there may be conditions that are not yet identified that may be dangerous as well as conditions that are not yet treated, may lead to worsening of your condition, respiratory failure, possible opioid withdrawal, or other potentially disabling or life-threatening complications. You are encouraged to stay to continue hospitalization or return to the hospital anytime. Otherwise please follow-up with your primary provider soon as possible. Please discuss with the next provider seeing him regarding COPD with exacerbation, but also regarding nodules seen on CAT scan which will need further assessment and consideration of assessment for tuberculosis or other causes, exclusion of malignancy. Please have your primary doctor or go to health department to complete tuberculosis skin testing to read the skin test on Wednesday. Please follow-up with health department to complete collection of sputum samples to assess for tuberculosis. Please continue to seek to establish with methadone clinic to help with opioid injection use disorder, please note continued injection may lead to life-threatening complications including coma, , or possibly infection, including infection of the heart or spread of infection to other organs among other complications. Please note that you are found also positive for hepatitis C, please follow-up with your primary doctor for additional assessment to see if it is a continued active infection and consideration of treatment, untreated hepatitis C may be risk of liver cirrhosis, liver cancer and other complications. Please stop smoking, continue smoking will lead to continued worsening of your lung condition, continue worsening of COPD, risk of lung cancer, as well as cancer of the colon, stomach, urinary bladder and other As well as risk of heart attack and stroke and other complications. Discharge Attestations Time Spent in Discharge Care*: greater than 30 min Quality Metrics Clinical Quality Measures [ No reported AMI, CVA or VTE this stay] Coding Level of Care Code 19445 Total time (in minutes) for Discharge: 50 Diagnoses Decompensated COPD with exacerbation (chronic obstructive pulmonary disease) J44.1 Symptom of congestive heart failure R09.89 Sinus tachycardia R00.0 Leukocytosis D72.829 Opioid use disorder, severe, dependence F11.20 Cigarette smoker two packs a day or less F17.210 Goals of care, counseling/discussion Z71.89
--- NOTE | 2022-10-14 20:00 | USCV_ITS ---
Jeremy Mendez Age: 47 Gender: M : 1975 Exam Date: 10/14/2022 09:23 Ordering Phys: Vargas Merritt MD Technologist: CHYNA [place] [facility] [place]: CHRONIC HEART FAILURE SYMPTOMS BP: 162 / 92 HR: 108 Rhythm: Atrial fibrillation Technical Quality: Suboptimal MEASUREMENTS (Male / Female) Normal Values 2D ECHO LVOT Diameter 2.0 cm LV Ejection Fraction MOD 2C 45.0 % LV Ejection Fraction 2C AL 44.8 % LA Diameter 2.2 cm LA Width 3.1 cm LA Height 3.6 cm RA Width 3.2 cm RA Height 3.6 cm Aorta at Sinotubular Diameter 3.1 cm IVC Diameter 1.7 cm M-MODE Aortic Annulus Diameter 2.7 cm LA Ao Ratio MM 0.6 MV E Point Septal Separation 0.9 cm DOPPLER AV Peak Velocity 115.0 cm/s LVOT Peak Velocity 77.0 cm/s AV Area Cont Eq vti 2.8 cm squared AV Area Cont Eq pk 2.1 cm squared MV Peak Velocity 98.0 cm/s MV Area PHT 5.9 cm squared Mitral E to A Ratio 0.7 MV E' Velocity 31.5 cm/s Mitral E to MV E' Ratio 7.7 Mitral E to LV E' Lateral Ratio 7.7 Mitral E to LV E' Septal Ratio 7.7 TR Peak Velocity 132.4 cm/s TR Peak Gradient 7.0 mmHg TR Mean Velocity 97.7 cm/s TR Mean Gradient 4.2 mmHg TR Velocity Time Integral 27.3 cm TV Peak E Velocity 59.0 cm/s Right Atrial Pressure 3.0 mmHg Pulmonary Artery Systolic Pressu 10.0 mmHg PV Peak Velocity 109.0 cm/s RV Acceleration Time 0.1 s RV Ejection Time 0.3 s RV AcT/ET 0.5 FINDINGS Left Ventricle Left ventricle is normal in size. LV systolic function is mildly reduced with EF of 40 to 45%. Mild global hypokinesis seen. Grade 1 diastolic dysfunction Right Ventricle Normal in size and function Right Atrium Normal in size Left Atrium Normal in size Mitral Valve Structurally normal mitral valve. Trace mitral regurgitation. Aortic Valve Structurally normal aortic valve. No significant stenosis or regurgitation. Tricuspid Valve Mild tricuspid regurgitation. Insufficient TR jet to calculate RVSP Pulmonic Valve Not well visualized Pericardium Normal Aorta Normal in size IVC Appears to be normal CONCLUSIONS LV systolic function is mildly reduced with EF of 40-45%. Grade 1 diastolic dysfunction Trace mitral regurgitation Mild tricuspid regurgitation Jose Maria Morel MD (Electronically Signed) Final Date: 14 October 2022 17:59 S
[2022-10-17 14:24] LABS: HEP C RNA Viral Load Quant 4.99 Log IU/mL (NOT DETECTED); HEP C RNA Viral Load Quant 96800 IU/mL (NOT DETECTED)
== END 2022-10-14 16:55 | disposition left against medical advice (07) | DRG 192 ==
LOC: ER 16:15 → ICU 10-14 06:33 → MEDSURG 10-14 06:33 → ICU 10-14 07:11 → MEDSURG 10-14 12:09
PROVIDERS: Admitting Provider Internal Medicine; Emergency Provider Family Medicine; PCP Family Medicine Adult Medicine; Visit Provider Internal Medicine
DX: J44.1 Chronic obstructive pulmonary disease with (acute) exacerbation (principal); I50.9 Heart failure, unspecified; F17.210 Nicotine dependence, cigarettes, uncomplicated; Z99.81 Dependence on supplemental oxygen; F41.9 Anxiety disorder, unspecified; D72.829 Elevated white blood cell count, unspecified; R00.0 Tachycardia, unspecified; Z53.29 Procedure and treatment not carried out because of patient's decision for other reasons; E83.42 Hypomagnesemia; Z79.891 Long term (current) use of opiate analgesic; B19.20 Unspecified viral hepatitis C without hepatic coma
CPT/HCPCS: 36415; 36600; 71045; 71275; 80051; 80053; 80074; 81003; 82330; 82805; 83735; 83880; 84484; 85025; 85378; 86403; 87040; 87449; 87486; 87522; 87581; 87633; 87806; 93005; 93306; 93970; 94640; 96372; 96374; 96376; 99285; J0360; J1650; J1940; J2930; J7626; Q9967

== ENCOUNTER 2022-10-21 10:22 | Emergency (ER) | payer MEDICAID, SELFPAY ==
[2022-10-21] VITALS (12 sets, daily range): BP systolic 92–109; BP diastolic 65–68; PULSE 118–149; RESP 15–26; TEMP 37.3; O2SAT 89–96; BMI 22.8
--- NOTE | 2022-10-21 10:34 | XR_ITS ---
WS: [id number] EXAMINATION: XR chest 1V portable [id number] REASON FOR EXAM: dyspnea/cough COMPARISON: 10/13/2022 ORDER DATE: 10/21/2022 10:37 AM TECHNIQUE: A single, portable frontal chest x-ray was obtained. X-RAY FINDINGS: The lungs are clear. Pleural spaces are clear. No pleural effusions or pneumothorax. Cardiomediastinal silhouette is unchanged with shift rightward of the anterior junctional line also u nchanged. Soft tissue and osseous structures are unremarkable. No tubes or lines are present. IMPRESSION: Unchanged shifting of the anterior junction line raising the question of possible pneumomediastinum o r bulla in the medial left upper lung.. The lateral chest view would be beneficial to further evaluate when feasible. No sign of any subcutaneous emphysema in the neck soft tissue.
--- NOTE | 2022-10-21 10:44 | ECG_ITS ---
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 Measurements Intervals [place] Rate: 141 P: 81 SC: 118 QRS: 109 QRSD: 85 T: 88 QT: 282 QTc: 433 Interpretive Statements SINUS TACHYCARDIA WITH SHORT SC INTERVAL, POSSIBLE ATRIAL FLUTTER POSSIBLE RIGHT VENTRICULAR HYPERTROPHY [SOME/ALL OF: PROMINENT R IN V1, LATE TRANSITION, RAD, PRISCILLA, SSS] NONSPECIFIC ST & T-WAVE ABNORMALITY Compared to ECG 10/13/2022 22:07:19 Left posterior fascicular block no longer present Possible ischemia no longer present T-wave abnormality still present Electronically Signed On 10-21-2022 20:04:23 CDT by Maxime Camacho M.D. [id number]
[2022-10-21] MEDS: ipratropium-albuterol 3 mL Neb INHALATION (11:01)
[2022-10-21] MEDS: sodium chloride 0.9% 1,000 ML 999 ML IV (11:06)
[2022-10-21] MEDS: methylPREDNISolone sod succ 125 MG in water for injection-sterile 2 ML 24 MG IVP (11:07)
[2022-10-21 11:11] LABS: Basophils % 0.4 %; Eosinophils % 0.5 %; Hematocrit 44.8 % (37-53); Lymphocytes # 0.3 10^3/uL (0.8-4.8); Lymphocytes % 4.2 %; Mean Corpuscular HGB Conc 30.8 g/dL (30-55); Mean Corpuscular Hemoglobin 27.5 pg (27-33); Mean Corpuscular Volume 89.2 fl (82-101); Mean Platelet Volume 9.1 fL (7.4-10.4); Monocytes # 0.1 10^3/uL (0.2-0.9); Monocytes % 0.8 %; Neutrophils # 6.98 10^3/uL (1.8-7.7); Neutrophils % 92.3 %; Nucleated Red Blood Cells % 0 %; Platelet Count 210 10^3/cmm (157-399); Red Blood Count 5.02 10^6/uL (3.85-5.65); Red Cell Distribution Width 15.7 % (12.1-15.1); White Blood Count 7.57 10^3/uL (3.29-11.43)
--- NOTE | 2022-10-21 11:13 | PC.NURSE ---
Pt resting in bed, IV started by this RN and medications administered. RT in room and administering DuoNeb as well.
[2022-10-21 11:29] LABS: Alanine Aminotransferase 93 U/L (0-41); Albumin Level 3.5 g/dL (3.5-5.2); Alkaline Phosphatase 585 U/L (40-130); Anion Gap 10.6 (5-19); Aspartate Amino Transferase 91 U/L (0-40); Blood Urea Nitrogen 24 mg/dL (6-20); Calcium 9.1 mg/dL (8.5-10.5); Carbon Dioxide 32 mmol/L (22-29); Chloride 103 mmol/L (98-107); Globulin 2.9 g/dL (1.3-4.6); Glomerular Filtration Rate 102.7 mL/min (90-130); Glucose 77 mg/dL (65-115); Magnesium 1.3 mg/dL (1.7-2.3); Osmolality Calculated 297 mOsm/kg (285-295); Potassium 3.6 mmol/L (3.5-5.1); Sodium 142 mmol/L (136-145); Total Bilirubin 0.7 mg/dL (0.15-1.2); Total Protein 6.4 g/dL (6.6-8.7)
[2022-10-21 11:39] LABS: Alveolar-Arterial Oxygen Gradi 16.2 mmHg (5-10); Base Excess ABG 2.1 mmol/L (-2.0-2.0); Blood Gas Allen Test Pos; Blood Gas Operator Identificat CAK; Blood Gas Sample Site Radial, left; Blood Gas Sample Type Arterial; Carboxyhemoglobin 2.9 %THgb (0.4-20.1); HCO3 ABG 30.3 mmol/L (22-26); HGB O2 Sat 85.5 % (95-100); Ionized Calcium Level - ABG 1.5 mmol/L (1.1-1.4); Methemoglobin 0.4 % (0.4-1.5); Oxygen Device NC; Oxygen Saturation ABG 88.5; Potassium Level - ABG 3.3 mmol/L (3.5-5.0); Total Hemoglobin 13.7 g/dL (14-18)
[2022-10-21 11:40] LABS: ABG PCO2 62.4 mmHg (35-45)
--- NOTE | 2022-10-21 11:55 | US_ITS ---
WS: [id number] ULTRASOUND ABDOMEN LIMITED CLINICAL INFORMATION: elevated lfts COMPARISON: None. FINDINGS: Liver Size: Mild hepatomegaly craniocaudal length: 17.1 cm. Echogenicity: Normal. Surface nodularity: None. Mass (size and location): None. Bile ducts Intrahepatic ducts: Normal. Common bile duct diameter: 0.4 cm. Gallbladder Normal. Gallstones: None. Gallbladder sludge: None. Gallbladder wall thickening: None. Pericholecystic fluid: None. Sonographic Stoddard sign: Absent. Pancreas Normal as visualized. Right kidney: Normal. Hydronephrosis: None. Size: 10.4 cm x 4.5 cm x 5.0 cm. Abdominal aorta and IVC Visualized portions are normal. Ascites: None. IMPRESSION: 1. Mild hepatomegaly. 2. Normal gallbladder. 3. Normal common bile duct. 4. No hydronephrosis in the RIGHT kidney.
--- NOTE | 2022-10-21 12:08 | PC.NURSE ---
PT PLACED ON CONTINUOUS NIBP, SPO2, AND CM
[2022-10-21 12:18] LABS: Lipase 18 U/L (13-60)
--- NOTE | 2022-10-21 13:12 | ED_ITS ---
HPI - SOB/Dyspnea General: Chief Complaint: Shortness of Breath/Dyspnea Stated Complaint: SOB Time Seen by Provider: 10/21/22 10:33 Source: patient Mode of arrival: ambulatory History of Present Illness: HPI Narrative: 47-year-old male who presents emergency room complaining of shortness of breath. He also has a pain in his lower back he says it makes it difficult for him to take a deep breath. No chest pain patient was admitted a week ago at that time he had a CTA done which was negative for PE. He refers to the pain in his back rather than his chest and refers to them come to low mid back. Worse when he takes a deep breath he has not had a productive cough. MD elicited complaint: shortness of breath and cough Pertinent past history: COPD and congestive heart failure Associated symptoms: Deny abdominal pain, chest pain, fever(s), nausea, orthopnea or vomiting Review of Systems Const: Denies: fever(s), chills, body aches, change in appetite, fatigue or malaise Card: Denies: chest pain, edema, dyspnea on exertion or orthopnea Resp: Reports: dyspnea, non-productive cough and wheezing; Denies: productive cough GI: Denies: abdominal pain, nausea, vomiting, hematemesis, coffee ground emesis, diarrhea, constipation, bloating, hematochezia or melena : Denies: flank pain, dysuria, urinary frequency or urinary urgency Skin/Breast: Denies: rash or pruritus [facility] ED PFSH: Medical History Anxiety disorder due to general medical condition with panic attack Cigarette smoker two packs a day or less COPD with hypoxia Decompensated COPD with exacerbation (chronic obstructive pulmonary disease) Hepatitis C antibody test positive Lipoma of chest wall 03/06/2021 3.5 x 6 cm right lateral chest wall probable lipoma Oxygen dependent Family History Other COPD (chronic obstructive pulmonary disease) Cancer Social History Smoking and tobacco status: current every day smoker cigarettes Packs smoked per day: 1 Second hand smoke exposure: Yes Alcohol intake: current Alcohol intake frequency: holidays/special occasions only Alcohol type: hard liquor Substance/Drug Use: current Other substance/drug use details: IV morphine Lives independently: Yes Marital status: Legally Current occupational status: disabled Current gender identity: Male Physical Exam Const: ORIENTATION/CONSCIOUSNESS: Yes awake, Yes oriented to person, Yes oriented to place and Yes oriented to time HENMT: COMMON NORMALS: normocephalic, atraumatic and hearing grossly normal bilaterally HEAD & SCALP: normocephalic and atraumatic Resp: EFFORT & INSPECTION: Yes uses accessory muscles AUSCULTATION: wheezes and diminished lung sounds Cardio: COMMON NORMALS: regular rhythm and No murmurs present (Cardio) RATE: tachycardic RHYTHM: regular rhythm GI: COMMON NORMALS: Soft to palpation and No hepatosplenomegaly present AUSCULTATION: Yes normoactive bowel sounds PALPATION: Yes Soft to palpation, No Tenderness to palpation present (GI), No Guarding due to palpation present (GI) and Yes No hepatosplenomegaly present Extremity: COMMON NORMALS: normal to inspection, capillary refill normal, no clubbing, cyanosis or edema, no calf tenderness and no pedal edema Neuro: SENSORIUM/ORIENTATION: Yes oriented to person, Yes oriented to place and Yes oriented to time Skin: COMMON NORMALS: no rashes or lesions noted GENERAL SKIN EXAM: no rashes or lesions noted Course Vital Signs: Vital signs: Vital Signs Temperature 99.1 F 10/21/22 10:28 Pulse Rate 118 H 10/21/22 15:09 Respiratory Rate 15 10/21/22 14:09 Blood Pressure 105/68 10/21/22 14:09 Pulse Oximetry 93 10/21/22 15:09 Oxygen Delivery Me thod BiPAP 10/21/22 12:45 Oxygen Flow Rate 40 10/21/22 12:45 Fraction of Inspir ed Oxygen 35 10/21/22 15:09 MDM - SOB/Dyspnea Medical Decision Making Acute exacerbation COPD complicated by deep compensated congestive heart failure possible underlying pneumonia. Patient was hypercapnic on arrival he actually slightly worsened while on the BiPAP on his blood gas but clinically he did seem improved. We advised the patient for admission he adamantly refuses. He is awake and alert answers all questions appropriately we advised him he has a very serious medical condition if it progresses he may worsen and he expresses understanding of this and still wishes to leave he was encouraged that if he wishes to be can return at any time we will gladly reevaluate him and treat him Medical Records I reviewed the patient's medical records. Lab Data I reviewed the patient's lab results. 10/21/22 11:03 10/21/22 11:03 Labs/Radiology: Laboratory Results WBC 7.57 10^3/uL (3.29-11.43) 10/21/22 11:03 RBC 5.02 10^6/uL (3.85-5.65) 10/21/22 11:03 Hgb 13.80 g/dL (11.27-16.99) 10/21/22 11:03 Hct 44.8 % (37-53) 10/21/22 11:03 MCV 89.2 fl (82-101) 10/21/22 11:03 MCH 27.5 pg (27-33) 10/21/22 11:03 MCHC 30.8 g/dL (30-55) 10/21/22 11:03 RDW 15.7 % (12.1-15.1) H 10/21/22 11:03 Plt Count 210 10^3/cmm (157-399) 10/21/22 11:03 MPV 9.1 fL (7.4-10.4) 10/21/22 11:03 Neut % (Auto) 92.3 % 10/21/22 11:03 Lymph % (Auto) 4.2 % 10/21/22 11:03 [place] % (Auto) 0.8 % 10/21/22 11:03 Eos % (Auto) 0.5 % 10/21/22 11:03 Baso % (Auto) 0.4 % 10/21/22 11:03 Neut # (Auto) 6.98 10^3/uL (1.8-7.7) 10/21/22 11:03 Lymph # (Auto) 0.3 10^3/uL (0.8-4.8) L 10/21/22 11:03 [place] # (Auto) 0.1 10^3/uL (0.2-0.9) L 10/21/22 11:03 Eos # (Auto) 0.0 10^3/uL (0.0-0.8) 10/21/22 11:03 Baso # (Auto) 0.0 10^3/uL (0.0-0.1) 10/21/22 11:03 Nucleated RBC % (auto) 0 % 10/21/22 11:03 Nucleated RBCs # 0.0 /100WBC 10/21/22 11:03 Specimen Type Arterial 10/21/22 13:12 Sample Site Radial, left 10/21/22 13:12 ABG pH 7.24 (7.35-7.45) L 10/21/22 13:12 ABG pCO2 72.0 mmHg (35-45) H* 10/21/22 13:12 ABG pO2 95.1 mmHg (80.0-100.0) 10/21/22 13:12 ABG HCO3 30.8 mmol/L (22-26) H 10/21/22 13:12 ABG O2 Saturation 96.9 10/21/22 13:12 ABG Base Excess 1.3 mmol/L (-2.0-2.0) 10/21/22 13:12 Gurpreet Test Pos 10/21/22 13:12 A-a O2 Gradient 13.6 mmHg (5-10) H 10/21/22 13:12 Hematocrit 42.3 % (42-52) 10/21/22 13:12 Hgb O2 Saturation 94.3 % (95-100) L 10/21/22 13:12 Carboxyhemoglobin 2.5 %THgb (0.4-20.1) 10/21/22 13:12 Methemoglobin 0.2 % (0.4-1.5) L 10/21/22 13:12 Total Hemoglobin 13.8 g/dL (14-18) L 10/21/22 13:12 Sodium 141.0 mmol/L (131-143) 10/21/22 13:12 Potassium 3.4 mmol/L (3.5-5.0) L 10/21/22 13:12 Glucose 73.0 mg/dL (70-115) 10/21/22 13:12 Ionized Calcium 1.2 mmol/L (1.1-1.4) 10/21/22 13:12 O2 Delivery Device Bipap 10/21/22 13:12 O2 Liters/Min 4.0 % 10/21/22 11:28 FiO2 40.0 % 10/21/22 13:12 Recreational Sports Director ID Cak 10/21/22 13:12 Sodium 142 mmol/L (136-145) 10/21/22 11:03 Potassium 3.6 mmol/L (3.5-5.1) 10/21/22 11:03 Chloride 103 mmol/L (98-107) 10/21/22 11:03 Carbon Dioxide 32 mmol/L (22-29) H 10/21/22 11:03 Anion Gap 10.6 (5-19) 10/21/22 11:03 BUN 24 mg/dL (6-20) H 10/21/22 11:03 Creatinine 0.8 mg/dL (0.7-1.2) 10/21/22 11:03 GFR Calculation 102.7 mL/min (90-130) 10/21/22 11:03 Glucose 77 mg/dL (65-115) 10/21/22 11:03 Calculated Osmolality 297 mOsm/kg (285-295) H 10/21/22 11:03 Calcium 9.1 mg/dL (8.5-10.5) 10/21/22 11:03 Magnesium 1.3 mg/dL (1.7-2.3) L 10/21/22 11:03 Total Bilirubin 0.7 mg/dL (0.15-1.2) 10/21/22 11:03 AST 91 U/L (0-40) H 10/21/22 11:03 ALT 93 U/L (0-41) H 10/21/22 11:03 Alkaline Phosphatase 585 U/L (40-130) H 10/21/22 11:03 Total Protein 6.4 g/dL (6.6-8.7) L 10/21/22 11:03 Albumin 3.5 g/dL (3.5-5.2) 10/21/22 11:03 Globulin 2.9 g/dL (1.3-4.6) 10/21/22 11:03 Lipase 18 U/L (13-60) 10/21/22 11:03 Discharge Plan Discharge Patient Disposition: Left Against Medical Advice Clinical Impression: Decompensated COPD with exacerbation (chronic obstructive pulmonary disease), Congestive heart failure Condition: Stable Prescriptions: New doxycycline hyclate 100 mg capsule 100 mg PO BID 10 Days Qty: 20 0RF prednisone 20 mg tablet 20 mg PO TID Qty: 15 0RF Rx Instructions: 1 p.o. 3 times daily x3 days, 1 p.o. twice daily x2 days, 1 p.o. daily x2 days albuterol sulfate 90 mcg/actuation HFA aerosol inhaler 2 inh INHALATION Q4H PRN (Reason: bronchospasm) Qty: 18 0RF No Action bupropion HCl 150 mg tablet sustained-release 12 hr 150 mg PO QAM Qty: 30 3RF (DME) Oxygen and supplies See Rx Instructions .Route .MEDSUPPLY Qty: 1 11RF Rx Instructions: As directed, 2 liters, continuous. (DME) nebulizer & suppies See Rx Instructions .Route .MEDSUPPLY Qty: 1 0RF Rx Instructions: As directed Home equipment Spiriva with HandiHaler 18 mcg capsule, w/inhalation device 1 cap inhalation DAILY Qty: 30 5RF Rx Instructions: puncture 1 cap using device; one dose = 2 inhalations 340B meds budesonide-formoterol [Symbicort] 160-4.5 mcg/actuation HFA aerosol inhaler 2 puff inhalation BID Qty: 10.2 4RF ipratropium-albuterol 20-100 mcg/actuation mist 2 puff inhalation Q8H PRN (Reason: Shortness Of Breath) albuterol sulfate 90 mcg/actuation HFA aerosol inhaler 2 inh INHALATION Q4H PRN (Reason: shortness of breath or wheezing) Qty: 18 0RF Discharge Orders: Discharge ED (Routine); Ordered 10/21/22 Ordered By: Migue Menjivar Referrals: Bruno Lucas MD [Primary Care Provider] - Discharge Diet: Usual diet Activity Restrictions/Additional Instructions: You were seen today for worsening of your COPD. You had what is diagnosed as acute hypercapnic respiratory failure. We had recommended you be admitted to the ICU you preferred to leave AGAINST MEDICAL ADVICE. If your breathing continues to worsen you may from this condition. You expressed understanding of this and still wished to leave. You are welcome to return at any time we would gladly reevaluate and treat you if you change your mind. Coding Level of Care Code ED [employer] for [employer]
[2022-10-21 13:24] LABS: ABG PH Result 7.24 (7.35-7.45); Alveolar-Arterial Oxygen Gradi 13.6 mmHg (5-10); Arterial Blood Gas Hematocrit 42.3 % (42-52); Base Excess ABG 1.3 mmol/L (-2.0-2.0); Blood Gas Allen Test Pos; Blood Gas Operator Identificat CAK; Blood Gas Sample Site Radial, left; Blood Gas Sample Type Arterial; Carboxyhemoglobin 2.5 %THgb (0.4-20.1); HCO3 ABG 30.8 mmol/L (22-26); HGB O2 Sat 94.3 % (95-100); Ionized Calcium Level - ABG 1.2 mmol/L (1.1-1.4); Methemoglobin 0.2 % (0.4-1.5); Oxygen Device BIPAP; Oxygen Saturation ABG 96.9; PO2 ABG 95.1 mmHg (80.0-100.0); Potassium Level - ABG 3.4 mmol/L (3.5-5.0); Total Hemoglobin 13.8 g/dL (14-18)
--- NOTE | 2022-10-21 13:40 | PC.NURSE ---
Pt was to be admitted to the ICU and has requested to leave now. Dr. Menjivar explained in depth the risks of leaving against medical advice with the condition he is in. NANCY Bui and NANCY Bhatt witnessed conversation between patient and doctor. Pt still wishes to leave knowing the risks an AMA form was provided for patient.
== END 2022-10-21 15:21 | disposition left against medical advice (07) ==
PROVIDERS: Emergency Provider Family Medicine; PCP Family Medicine Adult Medicine
DX: J44.1 Chronic obstructive pulmonary disease with (acute) exacerbation (principal); I11.0 Hypertensive heart disease with heart failure; I50.9 Heart failure, unspecified; F17.210 Nicotine dependence, cigarettes, uncomplicated; Z86.19 Personal history of other infectious and parasitic diseases; Z99.81 Dependence on supplemental oxygen
CPT/HCPCS: 36600; 71045; 76705; 80051; 80053; 82330; 82805; 83690; 83735; 85025; 93005; 94640; 94660; 96374; 99285; J2930; J7030